=== PATIENT | male | born 1950 | race Caucasian/White ===

== ENCOUNTER 2020-12-12 10:38 | Outpatient (REF) | payer OTHER, SELFPAY ==
[2020-12-12 10:43] LABS: MANUAL DIFF FLAG NO
[2020-12-12 10:54] LABS: Basophils Percent Auto 0.4 % (0-2); Eosinophils Absolute Auto 0.2 X10*3/uL (0.0-0.4); Eosinophils Percent Auto 3.3 % (0-4); Hemoglobin 14.9 g/dl (14.0-18.0); Imm Gran Abs Auto 0.01 X10*3/uL (0.00-0.03); Imm Gran Pct Auto 0.1 % (0.0-0.4); Lymphocytes Absolute Auto 2.2 X10*3/uL (1.2-4.9); Lymphocytes Percent Auto 32.9 % (20-40); Mean Corpuscular HGB Conc 32.4 g/dl (31.0-36.0); Mean Corpuscular Hemoglobin 29.4 pg (27.0-33.0); Mean Corpuscular Volume 90.7 fL (80-98); Mean Platelet Volume 11.2 fL (9.4-12.4); Monocytes Absolute Auto 1.1 X10*3/uL (0.1-1.2); Monocytes Percent Auto 16.8 % (2-11); Neutrophils Absolute Auto 3.1 X10*3/uL (2.0-8.3); Neutrophils Percent Auto 46.5 % (45-73); Platelet Count 203 X10*3/uL (160-400); Red Blood Count 5.07 X10*6/uL (4.60-5.80); Red Cell Distribution Width 13.3 % (11.0-16.0); White Blood Count 6.7 X10*3/uL (4.8-10.8)
[2020-12-12 10:58] LABS: Glucose Urine UA >=1000 MG/DL (NEG); Leukocyte Esterase Urine NEG (NEG); Nitrite Urine NEG (NEG); PH 5.5 (5.0-8.0); Specific Gravity - Urine >= 1.030 (1.005-1.025); Urine Blood NEG (NEG); Urine Ketones NEG (NEG); Urine Protein NEG (NEG-TRACE)
[2020-12-12 10:59] LABS: Appearance Urine CLEAR; Color Urine YELLOW
[2020-12-12 11:21] LABS: Mucus Urine TRACE /LPF; RBC Urine 0 /HPF (0); Squamous Epithelial Cell Urine TRACE /LPF; Uric Acid Crystals Urine TRACE /LPF; WBC Urine 0-2 /HPF (0-4)
[2020-12-12 11:24] LABS: Creatinine Urine 163.85 mg/dL; Microalbum/Creatinine Ratio Ur 53.7 ug/mg cr
[2020-12-12 11:29] LABS: Alanine Aminotransferase 18 U/L (0-40); Alkaline Phosphatase 120 U/L (39-117); Anion Gap 13 (12-20); Aspartate Amino Transferase 17 U/L (5-37); Bilirubin Total 0.7 mg/dL (0.0-1.0); Blood Urea Nitrogen 16 mg/dL (9-16); Calcium 8.9 mg/dL (8.4-10.2); Carbon Dioxide 26 mmol/L (22-29); Chloride 106 mmol/L (96-108); Cholesterol 218 mg/dL; Estimated Glomerular Filt Rate > 60; Glucose Fasting 234 mg/dL (60-99); HDL Cholesterol 34 mg/dL; Potassium 4.3 mmol/L (3.3-5.1); Sodium 141 mmol/L (135-145); Total Protein 7.2 g/dL (6.5-8.0); Triglycerides 540 mg/dL
[2020-12-12 11:34] LABS: Estimated Average Glucose 275 mg/dL; Hemoglobin A1c % 11.2 %
[2020-12-12 11:50] LABS: PSA,Total (Free>4and<10) 1.31 ng/mL (0.00-4.00)
[2020-12-12 14:02] LABS: Reflex LDLD? Yes
[2020-12-13 05:31] LABS: LDL Cholesterol Direct 86 mg/dL (<100)
== END 2020-12-12 10:39 | disposition home or self-care (01) ==
LOC: HO.LNP 10:38
PROVIDERS: Visit Provider Internal Medicine
DX: Z00.00 Encounter for general adult medical examination without abnormal findings (principal); Z12.5 Encounter for screening for malignant neoplasm of prostate; E78.2 Mixed hyperlipidemia; E11.9 Type 2 diabetes mellitus without complications; R97.20 Elevated prostate specific antigen [PSA]
CPT/HCPCS: 80053; 80061; 81001; 82043; 83036; 83721; 84153; 85025

== ENCOUNTER 2021-09-22 10:28 | Outpatient (REF) | payer OTHER, SELFPAY ==
[2021-09-22 10:56] LABS: Estimated Average Glucose 226 mg/dL; Hemoglobin A1c % 9.5 %
[2021-09-22 11:02] LABS: Alanine Aminotransferase 15 U/L (0-40); Albumin Level 4.1 g/dL (3.5-5.0); Alkaline Phosphatase 112 U/L (39-117); Aspartate Amino Transferase 15 U/L (5-37); Bilirubin Direct 0.2 mg/dL (0.0-0.5); Bilirubin Total 0.8 mg/dL (0.0-1.0); Cholesterol 223 mg/dL; Glucose Fasting 163 mg/dL (60-99); HDL Cholesterol 39 mg/dL; LDL Cholesterol Calculated 107 mg/dl; Total Protein 7.4 g/dL (6.5-8.0); Triglycerides 389 mg/dL
[2021-09-22 12:54] LABS: Reflex LDLD? No
== END 2021-09-22 10:29 | disposition home or self-care (01) ==
LOC: HO.LNP 10:28
PROVIDERS: PCP Internal Medicine; Visit Provider Internal Medicine
DX: E11.9 Type 2 diabetes mellitus without complications (principal); E78.2 Mixed hyperlipidemia
CPT/HCPCS: 80061; 80076; 82947; 83036

== ENCOUNTER 2021-12-16 10:43 | Outpatient (REF) | payer OTHER, SELFPAY ==
[2021-12-16 10:59] LABS: MANUAL DIFF FLAG NO
[2021-12-16 11:22] LABS: Basophils Absolute Auto 0.1 X10*3/uL (0.0-0.2); Basophils Percent Auto 0.6 % (0-2); Eosinophils Absolute Auto 0.2 X10*3/uL (0.0-0.4); Eosinophils Percent Auto 2.5 % (0-4); Hematocrit 46.3 % (42.0-52.0); Hemoglobin 15.5 g/dl (14.0-18.0); Imm Gran Abs Auto 0.01 X10*3/uL (0.00-0.03); Imm Gran Pct Auto 0.1 % (0.0-0.4); Lymphocytes Absolute Auto 2.4 X10*3/uL (1.2-4.9); Lymphocytes Percent Auto 30.4 % (20-40); Mean Corpuscular HGB Conc 33.5 g/dl (31.0-36.0); Mean Corpuscular Hemoglobin 30.2 pg (27.0-33.0); Mean Corpuscular Volume 90.1 fL (80.0-98.0); Mean Platelet Volume 11.2 fL (9.4-12.4); Monocytes Absolute Auto 0.9 X10*3/uL (0.1-1.2); Monocytes Percent Auto 11.6 % (2-11); Neutrophils Absolute Auto 4.3 x10*3/uL (2.0-8.3); Neutrophils Percent Auto 54.8 % (45-73); Platelet Count 210 X10*3/uL (160-400); Red Blood Count 5.14 X10*6/uL (4.60-5.80); Red Cell Distribution Width 13.2 % (11.0-16.0); White Blood Count 7.9 X10*3/uL (4.8-10.8)
[2021-12-16 11:37] LABS: Estimated Average Glucose 289 mg/dL; Hemoglobin A1c % 11.7 %
[2021-12-16 11:48] LABS: Alanine Aminotransferase 21 U/L (0-40); Albumin Level 3.9 g/dL (3.5-5.0); Alkaline Phosphatase 127 U/L (39-117); Anion Gap 12 (12-20); Aspartate Amino Transferase 17 U/L (5-37); Bilirubin Total 0.8 mg/dL (0.0-1.0); Blood Urea Nitrogen 17 mg/dL (9-16); Calcium 9.6 mg/dL (8.4-10.2); Carbon Dioxide 29 mmol/L (22-29); Chloride 103 mmol/L (96-108); Cholesterol 302 mg/dL; Estimated Glomerular Filt Rate > 60; Glucose Fasting 219 mg/dL (60-99); HDL Cholesterol 35 mg/dL; Potassium 4.4 mmol/L (3.3-5.1); Sodium 140 mmol/L (135-145); Total Protein 7.6 g/dL (6.5-8.0); Triglycerides 992 mg/dL
[2021-12-16 12:11] LABS: PSA,Total (Free>4and<10) 1.72 ng/mL (0.00-4.00)
[2021-12-16 12:36] LABS: Creatinine Urine 64.07 mg/dL; Microalbum/Creatinine Ratio Ur 76.4 ug/mg cr
[2021-12-16 12:37] LABS: Appearance Urine CLEAR; Color Urine YELLOW; Glucose Urine UA >=1000 MG/DL (NEG); Leukocyte Esterase Urine NEG (NEG); Nitrite Urine NEG (NEG); PH 5.5 (5.0-8.0); Urine Blood TRACE (NEG); Urine Ketones NEG (NEG); Urine Protein NEG (NEG-TRACE)
[2021-12-16 13:10] LABS: RBC Urine 0-2 /HPF (0); Squamous Epithelial Cell Urine TRACE /LPF
[2021-12-16 13:11] LABS: Bacteria Urine 1+ /LPF
== END 2021-12-16 10:44 | disposition home or self-care (01) ==
LOC: HO.LNP 10:43
PROVIDERS: Visit Provider Internal Medicine
DX: Z00.00 Encounter for general adult medical examination without abnormal findings (principal); Z12.5 Encounter for screening for malignant neoplasm of prostate; E78.2 Mixed hyperlipidemia; E78.6 Lipoprotein deficiency; E11.9 Type 2 diabetes mellitus without complications; E78.00 Pure hypercholesterolemia, unspecified; I10 Essential (primary) hypertension; R97.20 Elevated prostate specific antigen [PSA]
CPT/HCPCS: 80053; 80061; 81001; 81003; 82043; 83036; 84153; 85025

== ENCOUNTER 2022-01-19 16:17 | Outpatient (REF) | payer OTHER, SELFPAY ==
[2022-01-19 17:39] LABS: Uric Acid 5.6 mg/dL (3.4-7.0)
== END 2022-01-19 16:18 | disposition home or self-care (01) ==
LOC: HO.LNP 16:17
PROVIDERS: Visit Provider Internal Medicine
DX: M10.9 Gout, unspecified (principal)
CPT/HCPCS: 84550

== ENCOUNTER 2022-03-30 11:40 | Outpatient (REF) | payer OTHER, SELFPAY ==
[2022-03-30 12:16] LABS: Estimated Average Glucose 200 mg/dL; Hemoglobin A1c % 8.6 %
[2022-03-30 12:31] LABS: Cholesterol 174 mg/dL; Glucose Fasting 134 mg/dL (60-99); HDL Cholesterol 39 mg/dL; LDL Cholesterol Calculated 67 mg/dl; Triglycerides 340 mg/dL
[2022-03-30 13:23] LABS: Reflex LDLD? No
== END 2022-03-30 11:41 | disposition home or self-care (01) ==
LOC: HO.LNP 11:40
PROVIDERS: Visit Provider Internal Medicine
DX: E11.9 Type 2 diabetes mellitus without complications (principal); E78.2 Mixed hyperlipidemia
CPT/HCPCS: 80061; 82947; 83036

== ENCOUNTER 2022-12-28 10:50 | Outpatient (REF) | payer OTHER, SELFPAY ==
[2022-12-28 10:55] LABS: MANUAL DIFF FLAG NO
[2022-12-28 11:05] LABS: Basophils Percent Auto 0.6 % (0-2); Eosinophils Absolute Auto 0.2 X10*3/uL (0.0-0.4); Eosinophils Percent Auto 2.9 % (0-4); Hematocrit 44.7 % (42.0-52.0); Hemoglobin 14.2 g/dl (14.0-18.0); Imm Gran Abs Auto 0.01 X10*3/uL (0.00-0.03); Imm Gran Pct Auto 0.2 % (0.0-0.4); Lymphocytes Absolute Auto 1.7 X10*3/uL (1.2-4.9); Lymphocytes Percent Auto 26.2 % (20-40); Mean Corpuscular HGB Conc 31.8 g/dl (31.0-36.0); Mean Corpuscular Hemoglobin 28.3 pg (27.0-33.0); Mean Platelet Volume 10.8 fL (9.4-12.4); Monocytes Absolute Auto 0.8 X10*3/uL (0.1-1.2); Monocytes Percent Auto 12.5 % (2-11); Neutrophils Absolute Auto 3.8 x10*3/uL (2.0-8.3); Neutrophils Percent Auto 57.6 % (45-73); Platelet Count 223 X10*3/uL (160-400); Red Blood Count 5.02 X10*6/uL (4.60-5.80); Red Cell Distribution Width 14.6 % (11.0-16.0); White Blood Count 6.7 X10*3/uL (4.8-10.8)
[2022-12-28 11:07] LABS: Appearance Urine Clear; Color Urine Yellow; Glucose Urine UA >=1000 mg/dL (Negative); Leukocyte Esterase Urine Trace (Negative); Nitrite Urine Negative (Negative); Specific Gravity - Urine >= 1.030 (1.005-1.025); UMIC TRIGGER UACC YES; Urine Blood Negative (Negative); Urine Ketones Negative (Negative); Urine Protein Negative (Neg-Trace)
[2022-12-28 11:19] LABS: Alanine Aminotransferase 20 U/L (0-40); Albumin Level 3.8 g/dL (3.5-5.0); Alkaline Phosphatase 117 U/L (39-117); Anion Gap 12 (12-20); Aspartate Amino Transferase 29 U/L (5-37); Bilirubin Total 0.4 mg/dL (0.0-1.0); Blood Urea Nitrogen 19 mg/dL (9-16); Calcium 9.2 mg/dL (8.4-10.2); Carbon Dioxide 28 mmol/L (22-29); Chloride 106 mmol/L (96-108); Cholesterol 164 mg/dL; Estimated Glomerular Filt Rate > 60; Glucose Fasting 90 mg/dL (60-99); HDL Cholesterol 33 mg/dL; LDL Cholesterol Calculated 72 mg/dl; Potassium 4.4 mmol/L (3.3-5.1); Sodium 142 mmol/L (135-145); Total Protein 6.7 g/dL (6.5-8.0); Triglycerides 295 mg/dL
[2022-12-28 11:26] LABS: Bacteria Urine None Seen (None Seen); Hyaline Casts Urine 0-2 /LPF (0-2); RBC Urine 0-2 /HPF (0-2); Squamous Epithelial Cell Urine 0-2 /HPF (0-2); UACC Culture Trigger YES
[2022-12-28 11:27] LABS: Estimated Average Glucose 120 mg/dL; Hemoglobin A1c % 5.8 %
[2022-12-28 11:35] LABS: PSA,Total (Free>4and<10) 1.65 ng/mL (0.00-4.00)
[2022-12-28 11:38] LABS: Creatinine Urine 52.62 mg/dL; Microalbum/Creatinine Ratio Ur 32.3 ug/mg cr
== END 2022-12-28 10:51 | disposition home or self-care (01) ==
LOC: HO.LNP 10:50
PROVIDERS: Visit Provider Internal Medicine
DX: Z00.00 Encounter for general adult medical examination without abnormal findings (principal); E78.2 Mixed hyperlipidemia; E11.9 Type 2 diabetes mellitus without complications; R97.20 Elevated prostate specific antigen [PSA]; I10 Essential (primary) hypertension; R82.90 Unspecified abnormal findings in urine; Z12.5 Encounter for screening for malignant neoplasm of prostate
CPT/HCPCS: 80053; 80061; 81001; 82043; 83036; 84153; 85025; 87086; 87088; 87186

== ENCOUNTER 2023-06-24 11:45 | Outpatient (REF) | payer OTHER, SELFPAY ==
[2023-06-24 12:17] LABS: Estimated Average Glucose 140 mg/dL; Hemoglobin A1c % 6.5 % (<6.0)
[2023-06-24 12:21] LABS: Cholesterol 141 mg/dL (<200); HDL Cholesterol 41 mg/dL (>40); LDL Cholesterol Calculated 79 mg/dL (<100); Triglycerides 105 mg/dL (<150)
[2023-06-24 12:25] LABS: Alanine Aminotransferase 19 U/L (0-40); Albumin Level 4.1 g/dL (3.5-5.0); Alkaline Phosphatase 102 U/L (39-117); Aspartate Amino Transferase 19 U/L (5-37); Bilirubin Direct 0.3 mg/dL (0.0-0.5); Bilirubin Total 0.6 mg/dL (0.0-1.0); Glucose Fasting 100 mg/dL (60-99); Total Protein 7.5 g/dL (6.5-8.0)
[2023-06-24 13:09] LABS: Reflex LDLD? No
== END 2023-06-24 11:46 | disposition home or self-care (01) ==
LOC: HO.LNP 11:45
PROVIDERS: Visit Provider Internal Medicine
DX: E11.9 Type 2 diabetes mellitus without complications (principal); E78.00 Pure hypercholesterolemia, unspecified
CPT/HCPCS: 80061; 80076; 82947; 83036

== ENCOUNTER 2023-09-13 15:05 | Outpatient (REF) | payer OTHER, SELFPAY ==
--- NOTE | ~2023-09-13 | US_ITS ---
EXAMINATION: US SOFT TISSUE NECK CLINICAL INFORMATION: Enlarged parotid gland. COMPARISON: None available. TECHNIQUE: Linear transducer hein-scale and color Doppler examination with attention to the region of the right parotid gland with the left side scan for comparison. FINDINGS: Right: 1.2 x 0.6 x 0.9 cm avascular angulated hypodensity identified within the right parotid gland. Unremarkable appearing small intraparotid lymph nodes. Left: 2 complex cystic regions identified in the left parotid gland, larger measures 0.6 x 0.4 x 0.5 cm. US/US soft tiss head and/or neck IMPRESSION: 1.2 cm indeterminate right parotid hypodensity. Complex cystic structures left parotid gland. Consider IV contrast-enhanced CT for more definitive evaluation.
== END 2023-09-13 15:06 | disposition home or self-care (01) ==
LOC: HO.US 15:05
PROVIDERS: PCP Internal Medicine; Visit Provider Internal Medicine
DX: K11.1 Hypertrophy of salivary gland (principal)
CPT/HCPCS: 76536

== ENCOUNTER 2023-10-22 11:31 | Outpatient (REF) | payer OTHER, SELFPAY ==
[2023-10-22 12:47] LABS: Blood Urea Nitrogen 18 mg/dL (9-16); Estimated Glomerular Filt Rate > 60
== END 2023-10-22 11:32 | disposition home or self-care (01) ==
LOC: HO.LNP 11:31
PROVIDERS: Visit Provider Internal Medicine
DX: I10 Essential (primary) hypertension (principal)
CPT/HCPCS: 82565; 84520

== ENCOUNTER 2023-10-28 07:24 | Outpatient (REF) | payer OTHER, SELFPAY ==
--- NOTE | ~2023-10-28 | XR_ITS ---
EXAMINATION: XR CHEST CLINICAL INFORMATION: Left-sided chest wall pain. COMPARISON: August 28, 2015. TECHNIQUE: 2 views of the chest were obtained. FINDINGS: Status post median sternotomy with mediastinal clips. The most superior sternotomy wire is broken. Moderate multilevel degenerative changes in the thoracic spine. No pleural effusion. Mild bibasilar streaky opacities may represent atelectasis, although an inflammatory/infectious process could also be considered in the appropriate clinical setting. XR/XR chest 2V IMPRESSION: Mild bibasilar streaky opacities may represent atelectasis, although an inflammatory/infectious process could also be considered in the appropriate clinical setting.
--- NOTE | ~2023-10-28 | CT_ITS ---
EXAMINATION: CT SOFT TISSUE NECK WITH CONTRAST CLINICAL INFORMATION: Evaluate parotid gland nodule. COMPARISON: None available. TECHNIQUE: Following intravenous administration of 65 mL of Omnipaque 350 contrast, helical imaging was performed in the axial plane with generation of coronal and sagittal reformatted images. This CT examination was performed using dose optimization techniques as appropriate, variously including the following: *Automated exposure control *Adjustment of mA and/or kV according to patient size (this includes techniques or standardized protocols for targeted exams where dose is matched to indication/reason for exam; i.e. extremities or head) *Use of iterative reconstruction technique DLP: 396 mGy-cm FINDINGS: No enhancing lesion is seen within the parotid glands with some limitations in evaluation due to dental amalgam artifacts. There are multiple small calcifications within both parotid glands. No inflammatory changes are visible within the parotid spaces. No pathologically enlarged cervical lymph nodes are visible. There are atherosclerotic wall calcification at the origins of the internal carotid arteries without significant stenosis. No abnormal enhancement is seen within the oral cavity, pharyngeal mucosal space, or larynx. There is mild lobulated soft tissue along the tongue base, which is suspected to represent lingular tonsillar tissue. The submandibular glands are normal in appearance. The thyroid gland is homogeneous. The airway is normally maintained. There are surgical clips in the mediastinum with poststernotomy changes. The visualized portions of the lungs are clear. There is a chronic depressed fracture of the left orbital floor. The orbits are otherwise normal in appearance. No periapical lucencies are seen in the dentition. No acute osseous abnormality is seen. There is a mild rightward curvature of the cervical spine and leftward curvature of the thoracic spine. Severe loss of disc height with disc-osteophyte complexes noted at the C5-C6 and C6-C7 levels. Multilevel hypertrophic facet arthropathy noted in the cervical spine with foraminal encroachment. The paranasal sinuses are fairly well aerated. Moderate sigmoidal-shaped nasal septal deviation noted. The middle ear cavities and mastoid air cells are well aerated. The temporomandibular joints are normal. There is a focal [id number] stenosis in the intradural right vertebral artery with significant wall calcifications. The imaged portions of the brain demonstrate no acute abnormality. CT/CT soft tissue neck w IV con IMPRESSION: No discrete parotid glandular lesion. Multiple calcifications within both parotid glands suggest the sequelae of an underlying chronic inflammatory process; clinically correlate. No cervical adenopathy or acute process.
[2023-10-28] MEDS: iohexoL 350 MG/ML 100 ML INFUS..BTL 65 ML IV (08:19)
== END 2023-10-28 07:25 | disposition home or self-care (01) ==
LOC: HO.CT 07:24
PROVIDERS: Visit Provider Internal Medicine
DX: R07.89 Other chest pain (principal); K11.8 Other diseases of salivary glands
CPT/HCPCS: 70491; 71046; Q9967

== ENCOUNTER 2023-12-31 10:56 | Outpatient (REF) | payer OTHER, SELFPAY ==
[2023-12-31 11:10] LABS: MANUAL DIFF FLAG NO
[2023-12-31 11:15] LABS: Basophils Percent Auto 0.4 % (0-2); Eosinophils Absolute Auto 0.2 X10*3/uL (0.0-0.4); Eosinophils Percent Auto 2.2 % (0-4); Hematocrit 47.1 % (42.0-52.0); Hemoglobin 15.8 g/dl (14.0-18.0); Imm Gran Abs Auto 0.03 X10*3/uL (0.00-0.03); Imm Gran Pct Auto 0.4 % (0.0-0.4); Lymphocytes Absolute Auto 1.8 X10*3/uL (1.2-4.9); Lymphocytes Percent Auto 23.4 % (20-40); Mean Corpuscular HGB Conc 33.5 g/dl (31.0-36.0); Mean Corpuscular Hemoglobin 31.1 pg (27.0-33.0); Mean Corpuscular Volume 92.7 fL (80.0-98.0); Mean Platelet Volume 10.9 fL (9.4-12.4); Monocytes Absolute Auto 0.9 X10*3/uL (0.1-1.2); Monocytes Percent Auto 11.8 % (2-11); Neutrophils Absolute Auto 4.8 x10*3/uL (2.0-8.3); Neutrophils Percent Auto 61.8 % (45-73); Platelet Count 216 X10*3/uL (160-400); Red Blood Count 5.08 X10*6/uL (4.60-5.80); Red Cell Distribution Width 12.7 % (11.0-16.0); White Blood Count 7.8 X10*3/uL (4.8-10.8)
[2023-12-31 11:27] LABS: Estimated Average Glucose 212 mg/dL
[2023-12-31 11:29] LABS: Appearance Urine Clear; Color Urine Yellow; Glucose Urine UA >=1000 mg/dL (Negative); Leukocyte Esterase Urine Trace (Negative); Nitrite Urine Negative (Negative); PH 5.5 (5.0-9.0); Specific Gravity - Urine >= 1.030 (1.005-1.025); UMIC TRIGGER UACC YES; Urine Blood Negative (Negative); Urine Ketones Negative (Negative); Urine Protein Trace mg/dL (Neg-Trace)
[2023-12-31 11:40] LABS: Bacteria Urine None Seen (None Seen); Hyaline Casts Urine 0-2 /LPF (0-2); Squamous Epithelial Cell Urine 0-2 /HPF (0-2); UACC Culture Trigger YES
[2023-12-31 11:44] LABS: Alanine Aminotransferase 21 U/L (0-40); Albumin Level 3.9 g/dL (3.5-5.0); Alkaline Phosphatase 92 U/L (39-117); Anion Gap 12 (12-20); Aspartate Amino Transferase 19 U/L (5-37); Bilirubin Total 0.7 mg/dL (0.0-1.0); Blood Urea Nitrogen 16 mg/dL (9-16); Calcium 8.8 mg/dL (8.4-10.2); Carbon Dioxide 26 mmol/L (22-29); Chloride 107 mmol/L (96-108); Cholesterol 141 mg/dL (<200); Estimated Glomerular Filt Rate > 60; Glucose Fasting 131 mg/dL (60-99); HDL Cholesterol 40 mg/dL (>40); LDL Cholesterol Calculated 55 mg/dL (<100); Potassium 3.9 mmol/L (3.3-5.1); RBC Urine 0-2 /HPF (0-2); Sodium 141 mmol/L (135-145); Total Protein 7.2 g/dL (6.5-8.0); Triglycerides 230 mg/dL (<150)
[2023-12-31 11:49] LABS: Creatinine Urine 58.76 mg/dL; Microalbum/Creatinine Ratio Ur 124.2 ug/mg cr (<30)
[2023-12-31 11:56] LABS: PSA,Total (Free>4and<10) 1.99 ng/mL (0.00-4.00)
== END 2023-12-31 10:57 | disposition home or self-care (01) ==
LOC: HO.LNP 10:56
PROVIDERS: Visit Provider Internal Medicine
DX: Z00.00 Encounter for general adult medical examination without abnormal findings (principal); E78.00 Pure hypercholesterolemia, unspecified; I10 Essential (primary) hypertension; E78.2 Mixed hyperlipidemia; E11.40 Type 2 diabetes mellitus with diabetic neuropathy, unspecified; R82.90 Unspecified abnormal findings in urine; Z12.5 Encounter for screening for malignant neoplasm of prostate
CPT/HCPCS: 80053; 80061; 81001; 82043; 82570; 83036; 84153; 85025; 87086

== ENCOUNTER 2024-04-13 13:46 | Outpatient (AMB) | payer OTHER, SELFPAY ==
--- NOTE | 2024-04-13 14:11 | A.OFFVIS_ITS ---
Intake Visit Reasons: prostate irregularity Intake Note: Patient is present for PROSTATE IRREGULARITY Urology Medication:NONE Antibiotic Allergy:NONE Blood Thinner:NONE Combination Technician Required: No Allergies METFORMIN Allergy (Mild, Uncoded 04/13/24 14:27) Diarrhea HPI Comments Details: 04/13/2024--Rodolfo is a 73-year-old male who is here as an new patient evaluation of his prostate. He denies problems with urination, he does state occasionally he will get some urinary dribbling. AUA score 5. Reviewed recent PSA-12/31/23-1.99 ng/mL. Family history father prostate cancer, he states age 78 and his father was treated with hormone therapy. Prostate Exam: slightly irregular, no suspicious hard nodules palpated. Plan will ultrasound kidneys and bladder including prostate. [facility] Medical History Pure hypercholesterolemia, unspecified Oral mucosal lesion Skin lesion Prostate irregularity Type 2 diabetes mellitus without complication Annual physical exam Social History Alcohol intake: current Patient Tobacco Use Status: Never used Tobacco Review of Systems Const All systems reviewed & are unremarkable except as noted in HPI and below Reports no additional complaints Eyes Reports no additional complaints ENT Reports no additional complaints Card Reports no additional complaints Resp Reports no additional complaints GI Reports no additional complaints Reports as per HPI Musc Reports no additional complaints Skin/Breast Reports system reviewed and no additional complaints, except as documented Neuro Reports no additional complaints Psych Reports no additional complaints Endo Reports no additional complaints Jose Alfredo/Lymph Reports no additional complaints Aller/Immun Reports no additional complaints Physical Exam Const General: healthy appearing, no acute distress and well developed Orientation/consciousness: patient oriented x3 HEENT Head: Yes normocephalic and Yes atraumatic Eyes Conjunctivae: conjunctivae normal Neck Neck: Yes normal visual inspection Chest Chest palpation & inspection: normal inspection of the chest Resp Effort & Inspection: normal respiratory effort Cardio Jugular venous distension: no JVD GI Inspection: Yes normal to inspection Palpation (GI): Soft to palpation Other: Prostate Exam: slightly irregular, no suspicious hard nodules palpated Neuro General: patient oriented x3 Extrem General: No pedal edema Psych Appearance: grossly normal Affect: normal affect Results AMB Urinalysis, Automated UA Leukoctes 0 Prasanna/uL Last Edit by VAMSI Morgan on 04/13/24 14:29 UA Nitrite Negative Last Edit by VAMSI Morgan on 04/13/24 14:29 UA Urobilinogen 0.2 mg/dL Last Edit by VAMSI Morgan on 04/13/24 14:2 9 UA Protein 0 mg/dL Last Edit by VAMSI Morgan on 04/13/24 14:29 UA pH 5.5 Last Edit by VAMSI Morgan on 04/13/24 14:29 UA Blood 10 Yash/uL Last Edit by VAMSI Morgan on 04/13/24 14:29 UA Specific [place] 1.020 Last Edit by VAMSI Morgan on 04/13/24 14: 29 UA Ketone Negative Last Edit by VAMSI Morgan on 04/13/24 14:29 UA Bilirubin 0 mg/dL Last Edit by VAMSI Morgan on 04/13/24 14:29 UA Glucose 1000 mg/dL Last Edit by VAMSI Morgan on 04/13/24 14:29 Quality Reporting (2019) Benign Prostatic Hyperplasia ([facility] 771) AUA symptom score: 5 Quality of life due to urinary symptoms: If you were to spend the rest of your life with your urinary condition the way it is now, how would you feel about that?: Pleased Results Reviewed Results Reviewed: Laboratory Last Values Urine pH (Auto) 5.5 04/13/24 14: Specific [place] (Auto) 1.020 04/13/24 14:29 Urine Protein (Auto) 0 mg/dL 04/13/24 14:29 Glucose (UA)(Auto) 1000 mg/dL 04/13/24 14:29 Urine Ketones (Auto) Negative 04/13/24 14:29 Urine Blood (Auto) 10 Yash/uL 04/13/24 14:29 Urine Nitrite (Auto) Negative 04/13/24 14:29 Urine Bilirubin (Auto) 0 mg/dL 04/13/24 14:29 Urine Urobilinogen (Auto) 0.2 mg/dL 04/13/24 14:29 Leukocyte Esterase (Auto) 0 Prasanna/uL 04/13/24 14:29 Assessment & Plan Assessment & Plan (1) BPH loc w urin obs/LUTS: Code(s): N40.1 - Benign prostatic hyperplasia with lower urinary tract symptoms Category: Medical (2) Family history of prostate cancer in father: Code(s): Z80.42 - Family history of malignant neoplasm of prostate Category: Medical Plan Plan will ultrasound kidneys and bladder including prostate. Orders: Orders US retroperitoneal comp Today N40.1 - Benign prostatic hyperplasia with lower urinary tract symptoms AMB Urinalysis Automated Today Z13.9 - Encounter for screening, unspecified Patient Instructions: The patient had an opportunity to ask questions regarding treatment plan. The patient expressed understanding and agreement with the above treatment plan. The patient is aware they should contact our office by phone for worsening of their current condition or the appearance of new symptoms. Compliance is encouraged with any medications and followup testing that is ordered. It is a privilege to be allowed the opportunity to participate in the urologic care of your patient. If you have any questions or concerns regarding treatment for the above conditions please do not hesitate to contact me. The office telephone contact is [phone]. This note is constructed in part using voice recognition software. While every effort has been made to ensure accuracy scaleman errors may have been included. Yours sincerely, Wendy Burnett MD Coding Level of Care Code New Pt Level 4 (20734) Diagnoses BPH loc w urin obs/LUTS N40.1 Family history of prostate cancer in father Z80.42 AUA Symptom Score AUA Incomplete emptying - It does not feel like I empty my bladder all the way.: 0 - Not at all Frequency - I have to go again less than two hours after I finish urinating.: 1 - Less than 1 time in 5 Intermittency - I stop and start again several times when I urinate.: 0 - Not at all Urgency - It is hard to wait when I have to urinate.: 1 - Less than 1 time in 5 Weak stream - I have a weak urinary stream.: 1 - Less than 1 time in 5 Straining - I have to push or strain to begin urination.: 0 - Not at all Nocturia - I get up to urinate after I go to bed until the time I get up in the morning.: 2 times AUA Symptom Score: 5 Quality of life due to urinary symptoms: If you were to spend the rest of your life with your urinary condition the way it is now, how would you feel about that?: Pleased Source: Alberto KIM, Melissa LADD Jr, O'Allyssa MP, et al, and the Measurement Committee of the [place] [employer]. The [place] [employer] symptom index for benign prostatic hyperplasia. J Urol. 1992; 148: 4444-6746. Copyright 1992 [place] [employer]
== END 2024-04-13 15:05 | disposition home or self-care (01) ==
PROVIDERS: PCP Internal Medicine; Visit Provider Urology
DX: N40.1 Benign prostatic hyperplasia with lower urinary tract symptoms (principal); Z80.42 Family history of malignant neoplasm of prostate; Z13.9 Encounter for screening, unspecified
CPT/HCPCS: 99204

== ENCOUNTER → 2024-04-13 13:46 | Outpatient (BNVA) | payer OTHER, SELFPAY | PROVIDERS: PCP Internal Medicine; Visit Provider Urology | DX: N40.1 Benign prostatic hyperplasia with lower urinary tract symptoms (principal); N13.8 Other obstructive and reflux uropathy; Z80.42 Family history of malignant neoplasm of prostate | CPT/HCPCS: 81003 ==

== ENCOUNTER 2024-05-30 09:16 | Outpatient (REF) | payer OTHER, SELFPAY ==
--- NOTE | ~2024-05-30 | US_ITS ---
EXAMINATION: US RETROPERITONEAL COMPLETE (RENAL) CLINICAL INFORMATION: Benign prostatic hyperplasia with lower urinary tract symptoms. COMPARISON: None available. TECHNIQUE: Real-time imaging of the kidneys and bladder. FINDINGS: RIGHT KIDNEY: 12.7 x 6.2 x 5.7 cm (SAG x AP x TRV). The kidney is normal in size, contour, and echogenicity. Renal cortical thickness is normal. No renal calculi or hydronephrosis. A benign mid renal 1.4 cm Bosniak class I renal cyst is noted which requires no additional imaging or follow up. No solid renal masses are seen. LEFT KIDNEY: 11.5 x 6.7 x 4.9 cm (SAG x AP x TRV). The kidney is normal in size, contour, and echogenicity. Renal cortical thickness is normal. No calculi or focal parenchymal lesions. No hydronephrosis. BLADDER: Well distended and normal. Bilateral ureteral jets are demonstrated. Prevoid bladder volume is 152.0 mL. Postvoid bladder volume is 45.3 mL. ADDITIONAL FINDINGS: The prostate is enlarged at 49 cc US/US retroperitoneal comp IMPRESSION: Prostatomegaly with 49 cc prostate and 45.3 cc postvoid residual. Electronically signed by: Dominic Marcelino MD 07/29/2024 10:19 AM EST
== END 2024-05-30 09:17 | disposition home or self-care (01) ==
LOC: HO.US 09:16
PROVIDERS: PCP Internal Medicine; Visit Provider Urology
DX: N40.1 Benign prostatic hyperplasia with lower urinary tract symptoms (principal)
CPT/HCPCS: 76770

== ENCOUNTER 2024-06-05 08:30 | Outpatient (AMB) | payer OTHER, SELFPAY ==
--- NOTE | 2024-06-05 08:31 | MHC.OFFVIS ---
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
--- NOTE | 2024-06-05 08:31 | MHC.OFFVIS ---
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 Reviewed renal ultrasound which was done on 05/30/2024 small cyst right kidney no suspicious masses or stones. Mild to moderately enlarged prostate estimated volume 48.8 mL. Postvoid residual 45.3 mL. CoMorbidity--the patient is an insulin-dependent diabetic recent A1c 12/2023--9.0. Discussed starting Flomax however the patient wants to wait on any new medications and does not feel the urine flow is significantly bothersome at this time. Follow-up in 6 months PSA prior Review of chart: 04/13/2024--Rodolfo is a 73-year-old male who is here as an new patient evaluation of his prostate. He denies problems with urination, he does state occasionally he will get some urinary dribbling. AUA score 5. Reviewed recent PSA-12/31/23-1.99 ng/mL. Family history father prostate cancer, he states age 78 and his father was treated with hormone therapy. Prostate Exam: slightly irregular, no suspicious hard nodules palpated. Plan will ultrasound kidneys and bladder including prostate. [facility] Medical History Pure hypercholesterolemia, unspecified Oral mucosal lesion Skin lesion Prostate irregularity Type 2 diabetes mellitus without complication Annual physical exam Social History Alcohol intake: current Patient Tobacco Use Status: Never used Tobacco Review of Systems Const All systems reviewed & are unremarkable except as noted in HPI and below Reports no additional complaints Eyes Reports no additional complaints ENT Reports no additional complaints Card Reports no additional complaints Resp Reports no additional complaints GI Reports no additional complaints Reports as per HPI Musc Reports no additional complaints Skin/Breast Reports system reviewed and no additional complaints, except as documented Neuro Reports no additional complaints Psych Reports no additional complaints Endo Reports no additional complaints Jose Alfredo/Lymph Reports no additional complaints Aller/Immun Reports no additional complaints Telehealth Telehealth Telehealth [facility]: [facility] Location of provider rendering services: practice address Location of patient: address on file Patient Identification confirmed using: Name, : Yes Telehealth method: video Patient verbally consented to treatment: Yes Patient verbally consented to billing insurance company: Yes Patient informed of any privacy concerns related to visit: Yes Assessment & Plan Assessment & Plan (1) BPH loc w urin obs/LUTS: Code(s): N40.1 - Benign prostatic hyperplasia with lower urinary tract symptoms Category: Medical (2) Family history of prostate cancer in father: Code(s): Z80.42 - Family history of malignant neoplasm of prostate Category: Medical (3) Diabetes: Code(s): E11.9 - Type 2 diabetes mellitus without complications Category: Medical (4) Screening PSA (prostate specific antigen): Code(s): Z12.5 - Encounter for screening for malignant neoplasm of prostate Category: Medical Plan Follow-up in 6 months PSA prior Orders: Orders PSA,Total (Free>4and<10) 6 Months N40.1 - Benign prostatic hyperplasia with lower urinary tract symptoms, Z12.5 - Encounter for screening for malignant neoplasm of prostate, Z80.42 - Family history of malignant neoplasm of prostate Patient Instructions: The patient had an opportunity to ask questions regarding treatment plan. The patient expressed understanding and agreement with the above treatment plan. The patient is aware they should contact our office by phone for worsening of their current condition or the appearance of new symptoms. Compliance is encouraged with any medications and followup testing that is ordered. It is a privilege to be allowed the opportunity to participate in the urologic care of your patient. If you have any questions or concerns regarding treatment for the above conditions please do not hesitate to contact me. The office telephone contact is [phone]. This note is constructed in part using voice recognition software. While every effort has been made to ensure accuracy painter assistant errors may have been included. Yours sincerely, Wendy Burnett MD Coding Level of Care Code Tele Est Pt Level 4 (77445) Diagnoses BPH loc w urin obs/LUTS N40.1 Family history of prostate cancer in father Z80.42 Diabetes E11.9 Screening PSA (prostate specific antigen) Z12.5
== END 2024-06-05 08:58 | disposition home or self-care (01) ==
LOC: HO.HUSH 08:30
PROVIDERS: PCP Internal Medicine; Visit Provider Urology
DX: N40.1 Benign prostatic hyperplasia with lower urinary tract symptoms (principal); Z80.42 Family history of malignant neoplasm of prostate; E11.9 Type 2 diabetes mellitus without complications; Z12.5 Encounter for screening for malignant neoplasm of prostate
CPT/HCPCS: 99214

== ENCOUNTER → 2024-06-05 08:30 | Outpatient (BNVA) | payer OTHER, SELFPAY | PROVIDERS: PCP Internal Medicine; Visit Provider Urology ==

== ENCOUNTER 2024-07-04 11:34 | Outpatient (REF) | payer OTHER, SELFPAY ==
[2024-07-04 12:42] LABS: Estimated Average Glucose 220 mg/dL; Hemoglobin A1C 313.7705 umol/L; Hemoglobin A1c % 9.3 % (<6.0); Total Hemoglobin (HGBA1C) 4008.2038 umol/L
[2024-07-04 12:48] LABS: Alanine Aminotransferase 20 U/L (0-40); Albumin Level 3.8 g/dL (3.5-5.0); Alkaline Phosphatase 103 U/L (39-117); Aspartate Amino Transferase 25 U/L (5-37); Bilirubin Direct 0.2 mg/dL (0.0-0.5); Bilirubin Total 0.6 mg/dL (0.0-1.0); Cholesterol 151 mg/dL (<200); Glucose Fasting 182 mg/dL (60-99); HDL Cholesterol 35 mg/dL (>40); LDL Cholesterol Calculated 57 mg/dL (<100); Total Protein 6.9 g/dL (6.5-8.0); Triglycerides 298 mg/dL (<150)
== END 2024-07-04 11:35 | disposition home or self-care (01) ==
LOC: HO.LNP 11:34
PROVIDERS: Visit Provider Internal Medicine
DX: E11.9 Type 2 diabetes mellitus without complications (principal); E78.2 Mixed hyperlipidemia
CPT/HCPCS: 80061; 80076; 82947; 83036

== ENCOUNTER 2024-09-13 09:37 | Outpatient (REF) | payer OTHER, SELFPAY ==
--- NOTE | ~2024-09-13 | US_ITS ---
EXAMINATION: US EXTRACRANIAL CAROTID DUPLEX, BILATERAL CLINICAL INFORMATION: Carotid stenosis COMPARISON: January 09, 2020. TECHNIQUE: Real-time ultrasound and Doppler techniques (integrating B-mode 2-D vascular images, Doppler spectral analysis and color-flow Doppler imaging) were utilized to interrogate the extracranial carotid arteries, the vertebral arteries and proximal subclavian arteries bilaterally. The degree of stenosis is determined by criteria similar to NASCET. FINDINGS: Right Side: 1. There is mild calcified atherosclerotic plaque seen in the bifurcation/proximal ICA region. 2. The common carotid artery PSV proximally is 116 cm/s.. 3. The proximal internal carotid artery velocities are 60 cm/s systolic and 17 cm/s diastolic. 4. The proximal external carotid artery PSV is 81 cm/s. 5. The vertebral artery shows antegrade flow. 6. The subclavian artery waveforms are triphasic. Left Side: 1. There is calcified atherosclerotic plaque seen in the bifurcation/proximal ICA region. 2. The common carotid artery PSV proximally is 97 cm/.. 3. The proximal internal carotid artery velocities are 73 cm/s systolic and 16 cm/s diastolic. 4. The proximal external carotid artery PSV is 73 cm/s. 5. The vertebral artery shows antegrade flow. 6. The subclavian artery waveforms are triphasic. US/US carotid duplex BI IMPRESSION: 1. RIGHT: Calcified plaque. No hemodynamically significant stenosis by ultrasound criteria. 2. LEFT: Calcified plaque. No hemodynamically significant stenosis by ultrasound criteria. 3. There is no change in the category severity of disease when compared to the previous study dated . Electronically signed by: Miguel Castro MD 09/13/2024 11:33 AM EST
--- OUTSIDE RECORDS SUMMARY | 2024-09-13 11:14 | XMS_ITS ---
Author Organization Mj Bella MD Address [address] [place] [phone] Care Team Providers Care Pneumatic Tube Fitter Name Role Phone Mj Bella Primary Care Provider Allergies Allergen (clinical drug ingredient) Drug/Non Drug Allergy documented on EMR Reaction Allergy Type Onset Date Status metformin Metformin HCl diarrhea Drug Allergy Act rohan REASON FOR VISIT STUFFY NOSE., Video, c/o runny nose and chest congestion tested negative for Covid 1-2-25 Medications Medication SIG (Take, Route, Frequency, Duration) Notes Start Date End Date Status Metoprolol Succinate ER 100 MG TAKE 1 TABLET BY MOUTH EVERY DAY for 90 Active Lantus SoloStar 100 UNIT/ML 25 units Active Pantoprazole Sodium 40 MG 1 tablet Orall y Once a day for 90 days 03/20/2024 Active Omeprazole 20 MG TAKE 1 CAPSULE BY [facility] EVERY DAY 30 MINUTES BEFORE BREAKFAST for 30 Active Zithromax Z-Carlos Manuel 250 MG 2 tablet on the f irst day, then 1 tablet daily for 4 days Orally Once a day for 5 day(s) 08/18/2024 Active Pen [place] 3/16 31G X 5 MM as directed for 90 days 09/19/2019 Acti ve BD Pen Needle Mini U/F 31G X 5 MM USE 1 PEN TO INJECT MEDICATION DIRECTED for 90 Active Aspirin 81 MG 1 tablet Orally Once a day Active Nystatin 950135 UNIT/GM APPLY TOPICALLY TO THE AFFECTED AREA TWICE DAILY for 30 Active Dexcom G6 Sensor - as directed change every 10 days for 90 days 10/23/2022 Active Betamethasone Dipropionate Aug 0.05 % 1 application Externally Once a day for 14 days 09/11/2022 Active Dexcom G6 Transmitter - as directed huber ge every 90 days 10/23/2022 Active Dexcom G6 Hoist Operator - as directed 11/02/2022 Active FreeStyle Lancets - USE 1 LANCET TO TEST BLOOD SUGAR TWICE A DAY for 50 Active Indomethacin 50 MG 1 capsule with food or milk Orally Three times a day for 10 days 01/19/2022 Not-Taking Clopidogrel Bisulfate 75 MG 1 tablet Orally Once a day for 30 day(s) Active Ibuprofen 800 MG 1 tablet with food o r milk as needed Orally every 8 hrs Not-Taking Farxiga 10 mg 1 tablet Orally Once a day for 30 days 10/29/2023 Not-Taking sAXagliptin HCl 5 MG TAKE 1 TABLET BY MO UTH EVERY DAY Once a day for 90 days Active Zetia 10 MG 1 tablet Orally Once a day Active amLODIPine Besylate 5 MG TAKE 1 TABLET B Y MOUTH EVERY DAY Active Lisinopril 5 MG TAKE 1 TABLET BY [place] TH EVERY DAY Active Jardiance 25 MG 1 tablet Orally Once a day Active Atorvastatin Calcium 40 MG TAKE 1 TABLET BY MOUTH EVERY DAY Active Problems Problem Type SNOMED Code ICD Code Onset Dates Problem Status W/U Status Risk Notes Problem 27963009 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 Vital Signs Height 68 in 08/18/2024 weight is 215 BP not taken a t home no temp Encounters Encounter Location Date Provider Diagnosis Mj Bella MD [address] [place] [address] [place] [phone] 08/18/2024 Mj Bella Purulent bronchitis J41.1 Assessments Encounter Date Diagnosis (ICD Code) Assessment Notes Treatment Notes Treatment Clinical Notes Section Notes 08/18/2024 Purulent bronchitis (ICD-10 - J41.1) patient verbalized understanding of medication and directions for use Plan Of Treatment Medication Medication Name Sig Start Date Stop Date Notes Zithromax Z-Carlos Manuel 250 MG 2 tablet on the f irst day, then 1 tablet daily for 4 days Orally Once a day for 5 day(s) 08/18/2024 Treatment Notes Assessment Notes Purulent bronchitis patient verbalized u nderstanding of medication and directions for use Next Appt Details Provider Name:Mj vasquez, 01/04/2025 07:30:00 AM, [address] [place] [address], [address], [place], [place], [phone], Provider Name:Mj vasquez, 01/11/2025 08:30:00 AM, [address] [place] [address], Suite [facility], [place], [place], [phone], Progress Notes * Rodolfo WRIGHT PDOB:1950 (73 yo M)Acc No.[id number]:08/18/2024 Patient:?Rodolfo Wright Provider:?Mj eBlla MD :1950???Age:73 Y???Sex:Male Shaan e:08/18/2024 Address: [address], [facility] Subjective: * Chief Complaints: * ???STUFFY NOSE. [phone] Videoc/o runny nose and chest congestion tested negative for Covid 1-2-25 * HPI: ???Symptom(s):?Telehealth?Location of provider rendering services:?[address] [place] [address], [facility],?Location of patient:?other (please specify) At work in [place],?Patient identification confirmed using:?Name, , SSN, Insurance information,?Telehealth method:?Telephone only. Patient not visible to care provider.,?Consent:?Patient verbally consented to treatment, Patient verbally consented to billing insurance company, Patient informed of any privacy concerns related to method of visit,?Total time spend talking with patient (minutes)?10.? patient is a 73 yo male audio teleheath visit, with complaint of chest cold and having get rid of cough.runny nose, no fevers. tested negative for covid yesterday. * ROS:?General/Constitutional:?Denies?Chills.?Denies?Fatigue.?Denies?Fever.?Denies?Headache.?ENT:?Patient denies?decreased sense of smell , any loss of taste , sore throat.?Denies?Sore throat.?Respiratory:?Denies?Cough.?Denies?Shortness of breath at rest.?Denies?Shortness of breath with exertion.?Gastrointestinal:?Denies?Diarrhea.?Denies?Nausea.?Musculoskeletal:?Patient denies?muscle aches.?Peripheral Vascular:?Patient denies?red and blue toes.? * Medical History:? * Surgical History:? * Hospitalization/Major Diagno stic Procedure:? * Medications:?TakingClopidogr el Bisulfate 75 MG Tablet 1 tablet Orally Once a dayFreeStyle Lancets - Miscellaneous USE 1 LANCET TO TEST BLOOD SUGAR TWICE A DAY Betamethasone Dipropionate Aug 0.05 % Gel 1 application Externally Once a dayDexcom G6 Sensor - Miscellaneous as directed change every 10 daysDexcom G6 Transmitter - Miscellaneous as directed change every 90 daysDexcom G6 Hoist Operator - Device as directed Aspirin 81 MG Tablet Chewable 1 tablet Orally Once a dayBD Pen Needle Mini U/F 31G X 5 MM Miscellaneous USE 1 PEN TO INJECT MEDICATION DIRECTED Pen [place] 3/16 31G X 5 MM Miscellaneous as directed Nystatin 679539 UNIT/GM Cream APPLY TOPICALLY TO THE AFFECTED AREA TWICE DAILY Omeprazole 20 MG Capsule Delayed Release TAKE 1 CAPSULE BY MOUTH EVERY DAY 30 MINUTES BEFORE BREAKFAST Pantoprazole Sodium 40 MG Tablet Delayed Release 1 tablet Orally Once a dayMetoprolol Succinate ER 100 MG Tablet Extended Release 24 Hour TAKE 1 TABLET BY MOUTH EVERY DAY Lantus SoloStar 100 UNIT/ML Solution Pen-injector 25 units Zetia 10 MG Tablet 1 tablet Orally Once a dayAtorvastatin Calcium 40 MG Tablet TAKE 1 TABLET BY MOUTH EVERY DAY Jardiance 25 MG Tablet 1 tablet Orally Once a dayLisinopril 5 MG Tablet TAKE 1 TABLET BY MOUTH EVERY DAY amLODIPine Besylate 5 MG Tablet TAKE 1 TABLET BY MOUTH EVERY DAY sAXagliptin HCl 5 MG Tablet TAKE 1 TABLET BY MOUTH EVERY DAY Once a dayTaking Clopidogrel Bisulfate 75 MG Tablet 1 tablet Orally Once a dayTaking FreeStyle Lancets - Miscellaneous USE 1 LANCET TO TEST BLOOD SUGAR TWICE A DAY Taking Betamethasone Dipropionate Aug 0.05 % Gel 1 application Externally Once a dayTaking Accruent G6 Sensor - Miscellaneous as directed change every 10 daysTaking Dexcom G6 Transmitter - Miscellaneous as directed change every 90 daysTaking DexaVinci Media G6 Hoist Operator - Device as directed Taking Aspirin 81 MG Tablet Chewable 1 tablet Orally Once a dayTaking BD Pen Needle Mini U/F 31G X 5 MM Miscellaneous USE 1 PEN TO INJECT MEDICATION DIRECTED Taking Pen [place] 3/16 31G X 5 MM Miscellaneous as directed Taking Nystatin 048012 UNIT/GM Cream APPLY TOPICALLY TO THE AFFECTED AREA TWICE DAILY Taking Omeprazole 20 MG Capsule Delayed Release TAKE 1 CAPSULE BY MOUTH EVERY DAY 30 MINUTES BEFORE BREAKFAST Taking Pantoprazole Sodium 40 MG Tablet Delayed Release 1 tablet Orally Once a dayTaking Metoprolol Succinate ER 100 MG Tablet Extended Release 24 Hour TAKE 1 TABLET BY MOUTH EVERY DAY Taking Lantus SoloStar 100 UNIT/ML Solution Pen-injector 25 units Taking Zetia 10 MG Tablet 1 tablet Orally Once a dayTaking Atorvastatin Calcium 40 MG Tablet TAKE 1 TABLET BY MOUTH EVERY DAY Taking Jardiance 25 MG Tablet 1 tablet Orally Once a dayTaking Lisinopril 5 MG Tablet TAKE 1 TABLET BY MOUTH EVERY DAY Taking amLODIPine Besylate 5 MG Tablet TAKE 1 TABLET BY MOUTH EVERY DAY Taking sAXagliptin HCl 5 MG Tablet TAKE 1 TABLET BY MOUTH EVERY DAY Once a dayNot-Taking/PRNFarxiga 10 mg Tablet 1 tablet Orally Once a dayIbuprofen 800 MG Tablet 1 tablet with food or milk as needed Orally every 8 hrsIndomethacin 50 MG Capsule 1 capsule with food or milk Orally Three times a dayNot-Taking/PRN Farxiga 10 mg Tablet 1 tablet Orally Once a dayNot- Taking/PRN Ibuprofen 800 MG Tablet 1 tablet with food or milk as needed Orally every 8 hrsNot-Taking/PRN Indomethacin 50 MG Capsule 1 capsule with food or milk Orally Three times a dayDiscontinuedPaxlovid (300/100) 20 x 150 MG & 10 x 100MG Tablet Therapy Pack 3 tablets Orally Twice a dayMedication List reviewed and reconciled with the patientDiscontinued Paxlovid (300/100) 20 x 150 MG & 10 x 100MG Tablet Therapy Pack 3 tablets Orally Twice a dayMedication List reviewed and reconciled with the patient * Allergies:?Metformin HCl: di arrheayes[Allergies Verified] Objective: * Vitals:?Ht: 68 weight is 215 BP not taken at home no temp. Assessment: * Assessment: 1.?Purulent bronchitis - J41 .1 (Primary)? Plan: * Treatment: * Procedure Codes:? * * Sign off status: Completed true * Provider:?Mj Bella MD Date:?0 08/18/2024 Generated for Lolis carlson/Ileana/eTransmitting on:?09/13/2024 11:14 AM EST History and Physical Notes * HPI (History of Present Illness) Category Sub-Category Detail Notes Category Not es Symptom(s) Telehealth Location of [facility] services:: [address], [address] patient is a 73 yo male audio teleheath visit, with complaint of chest cold and having get rid of cough.runny nose, no fevers. tested negative for covid yesterday Location of patient:: other (please spec john) At work in [employer] Patient identification confi rmed using:: Name, , SSN, Insurance information Telehealth method:: Telephon e only. Patient not visible to care provider. Consent:: Patient verbally c onsented to treatment, Patient verbally consented to billing insurance company, Patient informed of any privacy concerns related to method of visit Total time spend talking with patient (m inutes): 10
--- OUTSIDE RECORDS SUMMARY | 2024-09-13 11:14 | XMS_ITS ---
Author Organization Mj Bella MD Address [address] [place] [phone] Care Team Providers Care Human Intelligence Name Role Phone Mj Bella Primary Care Provider REASON FOR VISIT refill Medications Medication SIG (Take, Route, Fr equency, Duration) Notes Start Date End Date Status sAXagliptin HCl 5 MG TAKE 1 TABLET BY MO UTH EVERY DAY Once a day for 90 days Activ e Encounters Encounter Location Date Provider Diagnosis Mj Bella MD [address] [place] [phone] 07/31/2024 Mj Bella Plan Of Treatment Medication Medication Name Sig Start Date Stop Date Notes sAXagliptin HCl 5 MG TAKE 1 TABLET BY MO [facility] EVERY DAY Once a day for 90 days Next Appt Details Provider Name:Mj vasquez, 01/04/2025 07:30:00 AM, [address], [address], [place], [phone], Provider Name:Mj vasquez, 01/11/2025 08:30:00 AM, [address], [address], [place], [place], [phone], Progress Notes * Rodolfo WRIGHT PDOB:1950 (73 yo M)Acc No.[id number]:07/31/2024 Patient:?Rodolfo Wright :1950???Age:73 Y???Sex:Male Address: [address], [place] [address] * Refills? Refill sAXagliptin HCl Tablet, 5 MG, 90 Tablet, TAKE 1 TABLET BY MOUTH EVERY DAY, Once a day, 90 days, Refills=3 * true * Date:? Generated for Lolis carlson/Ileana/Aiitting on:?09/13/2024 11:13 AM EST
--- OUTSIDE RECORDS SUMMARY | 2024-09-13 11:14 | XMS_ITS ---
Author Organization Mj Bella MD Address [address] [place] [phone] Care Team Providers Care Rotary Bar Operator Name Role Phone JenaRyleen Primary Care Provider [phone] REASON FOR VISIT P-A Jardiance 25mg Encounters Encounter Location Date Provider Diagnosis Mj Bella MD [address] [place] [address] [place] [phone] 07/25/2024 Mj Bella Plan Of Treatment Next Appt Details Provider Name:Mj Maharaj ier, 01/04/2025 07:30:00 AM, [address] [place] [address], [address], [phone], Provider Name:Mj Maharaj iegregor, 01/11/2025 08:30:00 AM, [address] [place] [address], [address], [phone], Progress Notes * Rodolfo WRIGHT PDOB:1950 (73 yo M)Acc No.[id number]:07/25/2024 Patient:?Rodolfo Wright P :1950???Age:73 Y???Sex:Male Address: [address], [place] [address] * true * Date:? Generated for Lolis carlson/Ileana/eTransmitting on:?09/13/2024 11:14 AM EST
== END 2024-09-13 09:38 | disposition home or self-care (01) ==
LOC: HO.US 09:37
PROVIDERS: PCP Internal Medicine; Visit Provider Internal Medicine
DX: I65.23 Occlusion and stenosis of bilateral carotid arteries (principal)
CPT/HCPCS: 93880

== ENCOUNTER → 2024-09-13 09:39 | Outpatient (BNV) | payer OTHER, SELFPAY | PROVIDERS: PCP Internal Medicine; Visit Provider Radiology Diagnostic Radiology | DX: I25.84 Coronary atherosclerosis due to calcified coronary lesion (principal) | CPT/HCPCS: 93880 ==

== ENCOUNTER → 2024-11-29 10:26 | Outpatient (REF) | payer OTHER, SELFPAY ==
--- NOTE | ~2024-11-29 | NM_ITS ---
EXAMINATION: NM BONE SCAN WHOLE BODY HISTORY: E11.9 DIABETES TYPE II WITHOUT COMPLICATION BACK AND SIDE PAIN. TECHNIQUE: A total body bone scan was performed following the intravenous administration of 34 mCi technetium 99m-MDP. Delayed whole body planar images were obtained. COMPARISON: There are no prior studies for comparison. FINDINGS: There is a small focus of increased uptake involving the left 7th costovertebral junction, which may be degenerative or posttraumatic in nature. There is mild increased uptake involving the AC joints of both shoulders, likely degenerative in nature. The remainder of the visualized osseous structures demonstrate a normal distribution of activity. There is normal bilateral renal uptake. NM/NM bone scan whole body IMPRESSION: Minimal increased uptake involving the left 7th costovertebral junction and the bilateral AC joints, likely degenerative in nature. Otherwise unremarkable whole body bone scan. Electronically signed by: Hang Bundy MD 11/29/2024 03:05 PM EDT
--- OUTSIDE RECORDS SUMMARY | 2024-11-29 12:12 | XMS_ITS ---
Author Organization Mj Bella MD Address [address] [place] [phone] Care Team Providers Care Intern Architect Name Role Phone Mj Bella Primary Care Provider Allergies Allergen (clinical drug ingredient) Drug/Non Drug Allergy documented on EMR Reaction Allergy Type Onset Date Status metformin Metformin HCl diarrhea Drug Allergy Act rohan Results Component Value Reference Range Notes Hemoglobin A1c Reviewed date:10/27/2024 01:24:48 PM Interpretation: Performing Lab: Notes/Report: Hemoglobin A1c 8.2 Glucose, finger stick Reviewed date:10/27/2024 01:11:39 PM Interpretation: Performing Lab: Notes/Report: Value 254 REASON FOR VISIT back pain left and right side x 2 months Medications Medication SIG (Take, Route, Frequency, Duration) Notes Start Date End Date Status Farxiga 10 mg 1 tablet Orally Once a day for 30 days 10/29/2023 Not-Taking Jardiance 25 MG 1 tablet Orally Once a day Active Lantus SoloStar 100 UNIT/ML 25 units Active Indomethacin 50 MG 1 capsule with food or milk Orally Three times a day for 10 days 01/19/2022 Not-Taking Ibuprofen 800 MG 1 tablet with food o r milk as needed Orally every 8 hrs Not-Taking amLODIPine Besylate 5 MG TAKE 1 TABLET B Y MOUTH EVERY DAY Active Lisinopril 5 MG TAKE 1 TABLET BY [place] EVERY DAY Active Pantoprazole Sodium 40 MG 1 tablet Orall y Once a day for 90 days 03/20/2024 Not-Taking Nystatin 295196 UNIT/GM APPLY TOPICALLY TO THE AFFECTED AREA TWICE DAILY for 30 Active sAXagliptin HCl 5 MG TAKE 1 TABLET BY [facility] EVERY DAY Once a day for 90 days Active Zetia 10 MG 1 tablet Orally Once a day Active Atorvastatin Calcium 40 MG TAKE 1 TABLET BY MOUTH EVERY DAY Active Omeprazole 20 MG TAKE 1 CAPSULE BY [facility] EVERY DAY 30 MINUTES BEFORE BREAKFAST for 30 Active Pen [place] 3/16 31G X 5 MM as directed for 90 days 09/19/2019 Acti ve Metoprolol Succinate ER 100 MG TAKE 1 TABLET BY MOUTH EVERY DAY for 90 Active Dexcom G6 Imaging Analyst - as directed 11/02/2022 Not-Taking Dexcom G6 Transmitter - as directed huber ge every 90 days 10/23/2022 Not-Taking Dexcom G6 Sensor - as directed change every 10 days for 90 days 10/23/2022 Not-Taking BD Pen Needle Mini U/F 31G X 5 MM USE 1 PEN TO INJECT MEDICATION DIRECTED for 90 Active Aspirin 81 MG 1 tablet Orally Once a day Active Betamethasone Dipropionate Aug 0.05 % 1 application Externally Once a day for 14 days 09/11/2022 Active FreeStyle Lancets - USE 1 LANCET TO TEST BLOOD SUGAR TWICE A DAY for 50 Active Clopidogrel Bisulfate 75 MG 1 tablet Orally Once a day for 30 day(s) Active Vital Signs Blood pressure systolic 144 mm Hg 10/28/19 25 Blood pressure diastolic 80 mm Hg 025 Height 68 in 10/27/2024 Weight 225 lbs 10/27/2024 BMI 34.21 kg/m2 10/27/2024 weight is up 5 pounds since 2-3-25 Encounters Encounter Location Date Provider Diagnosis Mj Bella MD [address] [place] [address] [place] [phone] 10/27/2024 Mj Bella Type 2 diabetes mellitus without complication E11.9 and Bone pain M89.8X9 Assessments Encounter Date Diagnosis (ICD Code) Assessment Notes Treatment Notes Treatment Clinical Notes Section Notes 10/27/2024 Type 2 diabetes mellitus without complication (ICD-10 - E11.9) 10/27/2024 Bone pain (ICD-10 - M89.8X9) pending diagnostic testing/ order faxed to [facility] dept Plan Of Treatment Medication Medication Name Sig Start Date Stop Date Notes Jardiance 25 MG 1 tablet Orally Once a day Lantus SoloStar 100 UNIT/ML 25 units Treatment Notes Assessment Notes Bone pain pending diagnostic t esting/ order faxed to [facility] dept Pending Test Test Name Order Date NUC WHOLE BODY SCAN BONE 10/27/2024 Next Appt Details Follow Up: after bone, Cesiliao n: Provider Name:Mj vasquez, 01/04/2025 07:30:00 AM, [address] [place] [address], [address], [place], [place], [phone], Provider Name:Mj vasquez, 01/11/2025 08:30:00 AM, [address] [place] [address], [address], [place], [place], [phone], Progress Notes * Rodolfo WRIGHT PDOB:1950 (73 yo M)Acc No.[id number]:10/27/2024 Patient:?Rodolfo WRIGHT Provider:?Mj Bella MD :1950???Age:73 Y???Sex:Male Shaan e:10/27/2024 Address: [address], [id number] Subjective: * Chief Complaints: * ???Back pain left and right side x 2 months * HPI: ???Symptom(s):?patient is a male still having back pain on both sides if he gets up. if he laughs. * ROS:?General/Constitutional:?Denies?Chills.?Denies?Fatigue.?Denies?Fever.?Denies?Headache.?ENT:?Patient denies?decreased sense of smell, any loss of taste, sore throat.?Denies?Sore throat.?Respiratory:?Denies?Cough.?Denies?Shortness of breath at rest.?Denies?Shortness of breath with exertion.?Gastrointestinal:?Denies?Diarrhea.?Denies?Nausea.?Musculoskeletal:?Patient denies?muscle aches.?Peripheral Vascular:?Patient denies?red and blue toes.? * Medical History:? * Surgical History:? * Hospitalization/Major Diagno stic Procedure:? * Medications:?TakingClopidogr el Bisulfate 75 MG Tablet 1 tablet Orally Once a day FreeStyle Lancets - Miscellaneous USE 1 LANCET TO TEST BLOOD SUGAR TWICE A DAY Betamethasone Dipropionate Aug 0.05 % Gel 1 application Externally Once a day Aspirin 81 MG Tablet Chewable 1 tablet Orally Once a day BD Pen Needle Mini U/F 31G X 5 MM Miscellaneous USE 1 PEN TO INJECT MEDICATION DIRECTED Pen [place] 3/16 31G X 5 MM Miscellaneous as directed Omeprazole 20 MG Capsule Delayed Release TAKE 1 CAPSULE BY MOUTH EVERY DAY 30 MINUTES BEFORE BREAKFAST Metoprolol Succinate ER 100 MG Tablet Extended Release 24 Hour TAKE 1 TABLET BY MOUTH EVERY DAY Lantus SoloStar 100 UNIT/ML Solution Pen-injector 25 units Zetia 10 MG Tablet 1 tablet Orally Once a day Atorvastatin Calcium 40 MG Tablet TAKE 1 TABLET BY MOUTH EVERY DAY Jardiance 25 MG Tablet 1 tablet Orally Once a day Lisinopril 5 MG Tablet TAKE 1 TABLET BY MOUTH EVERY DAY amLODIPine Besylate 5 MG Tablet TAKE 1 TABLET BY MOUTH EVERY DAY sAXagliptin HCl 5 MG Tablet TAKE 1 TABLET BY MOUTH EVERY DAY Once a day Nystatin 414748 UNIT/GM Cream APPLY TOPICALLY TO THE AFFECTED AREA TWICE DAILY Taking Clopidogrel Bisulfate 75 MG Tablet 1 tablet Orally Once a day Taking FreeStyle Lancets - Miscellaneous USE 1 LANCET TO TEST BLOOD SUGAR TWICE A DAY Taking Betamethasone Dipropionate Aug 0.05 % Gel 1 application Externally Once a day Taking Aspirin 81 MG Tablet Chewable 1 tablet Orally Once a day Taking BD Pen Needle Mini U/F 31G X 5 MM Miscellaneous USE 1 PEN TO INJECT MEDICATION DIRECTED Taking Pen [place] 3/16 31G X 5 MM Miscellaneous as directed Taking Omeprazole 20 MG Capsule Delayed Release TAKE 1 CAPSULE BY MOUTH EVERY DAY 30 MINUTES BEFORE BREAKFAST Taking Metoprolol Succinate ER 100 MG Tablet Extended Release 24 Hour TAKE 1 TABLET BY MOUTH EVERY DAY Taking Lantus SoloStar 100 UNIT/ML Solution Pen-injector 25 units Taking Zetia 10 MG Tablet 1 tablet Orally Once a day Taking Atorvastatin Calcium 40 MG Tablet TAKE 1 TABLET BY MOUTH EVERY DAY Taking Jardiance 25 MG Tablet 1 tablet Orally Once a day Taking Lisinopril 5 MG Tablet TAKE 1 TABLET BY MOUTH EVERY DAY Taking amLODIPine Besylate 5 MG Tablet TAKE 1 TABLET BY MOUTH EVERY DAY Taking sAXagliptin HCl 5 MG Tablet TAKE 1 TABLET BY MOUTH EVERY DAY Once a day Taking Nystatin 121523 UNIT/GM Cream APPLY TOPICALLY TO THE AFFECTED AREA TWICE DAILY Not-Taking/PRNDexcom G6 Sensor - Miscellaneous as directed change every 10 days Dexcom G6 Transmitter - Miscellaneous as directed change every 90 days Dexcom G6 Imaging Analyst - Device as directed Pantoprazole Sodium 40 MG Tablet Delayed Release 1 tablet Orally Once a day Farxiga 10 mg Tablet 1 tablet Orally Once a day Ibuprofen 800 MG Tablet 1 tablet with food or milk as needed Orally every 8 hrs Indomethacin 50 MG Capsule 1 capsule with food or milk Orally Three times a day Medication List reviewed and reconciled with the patientNot-Taking/PRN Dexcom G6 Sensor - Miscellaneous as directed change every 10 days Not-Taking/PRN Dexcom G6 Transmitter - Miscellaneous as directed change every 90 days Not-Taking/PRN Dexcom G6 Imaging Analyst - Device as directed Not-Taking/PRN Pantoprazole Sodium 40 MG Tablet Delayed Release 1 tablet Orally Once a day Not-Taking/PRN Farxiga 10 mg Tablet 1 tablet Orally Once a day Not-Taking/PRN Ibuprofen 800 MG Tablet 1 tablet with food or milk as needed Orally every 8 hrs Not-Taking/PRN Indomethacin 50 MG Capsule 1 capsule with food or milk Orally Three times a day Medication List reviewed and reconciled with the patient * Allergies:?Metformin HCl: zoe riggins[Allergies Verified] Objective: * Vitals:?Ht: 68, Wt: 225, BMI :34.21, BP:144/80, Repeat BP:120/80, Wt-k.06. weight is up 5 pounds since 09-18-24. * Examination: ???General Examination: ?GENERAL APPEARANCE:?alert, well hydrated, in no distress.?HEAD:?normocephalic.?SKIN:?good turgor.?HEART:?regular rate and rhythm, no murmurs, rubs, gallops.?LUNGS:?no wheezes, rales, rhonchi, good air movement, clear to auscultation bilaterally.?CHEST:?non tender ribs.? Assessment: * Assessment: 1.?Type 2 diabetes mellitus without complication - E11.9 (Primary)???2.?Bone pain - M89.8X9??? Plan: * Treatment: ? Value Reference Range ?Hemoglobin A1c 8.2 ?LAB: Glucose, finger stick (Collection Date & Time - 10/27/2024)* ? Value Reference Range ?Value 254 ?Imaging: NUC WHOLE BODY SCAN BONE2.?Bone pain? Notes: pending diagnostic testing/ order faxed to [facility] dept ?? * Procedure Codes:?65307 ASSAY , GLUCOSE, BLOOD QUANT, Modifiers: QW 55105 GLYCATED HEMOGLOBIN TEST, Modifiers: QW * Follow Up:?after bone * * Sign off status: Completed true * Provider:?Mj Bella MD Date:?0 10/27/2024 Generated for Lolis carlson/Ileana/eTransmitting on:?11/29/2024 12:11 PM EDT History and Physical Notes * HPI (History of Present Illness) Category Sub-Category Detail Notes Category Not es Symptom(s) patient is a ma le still having back pain on both sides if he gets up. if he laughs Examination Category Sub-Category Detail Notes Category Not es General Examination GENERAL APPEARANCE: alert, w ell hydrated, in no distress HEAD: normocephalic HEART: regular rate and rhy thm, no murmurs, rubs, gallops CHEST: non tender ribs LUNGS: no wheezes, rales, r honchi, good air movement, clear to auscultation bilaterally SKIN: good turgor
--- OUTSIDE RECORDS SUMMARY | 2024-11-29 12:12 | XMS_ITS ---
Author Organization Mj Bella MD Address [address] [place] [phone] Care Team Providers Care Virginia Line Attendant Name Role Phone Mj Bella Primary Care Provider Allergies Allergen (clinical drug ingredient) Drug/Non Drug Allergy documented on EMR Reaction Allergy Type Onset Date Status metformin Metformin HCl diarrhea Drug Allergy Act rohan REASON FOR VISIT PAIN IN SIDES x 2 weeks no injury Medications Medication SIG (Take, Route, Frequency, Duration) Notes Start Date End Date Status Farxiga 10 mg 1 tablet Orally Once a day for 30 days 10/29/2023 Not-Taking Ibuprofen 800 MG 1 tablet with food o r milk as needed Orally every 8 hrs Not-Taking Nystatin 111250 UNIT/GM APPLY TOPICALLY TO THE AFFECTED AREA TWICE DAILY for 30 Active Indomethacin 50 MG 1 capsule with food or milk Orally Three times a day for 10 days 01/19/2022 Not-Taking sAXagliptin HCl 5 MG TAKE 1 TABLET BY [facility] EVERY DAY Once a day for 90 days Active Lisinopril 5 MG TAKE 1 TABLET BY [place] [facility] EVERY DAY Active amLODIPine Besylate 5 MG TAKE 1 TABLET B Y MOUTH EVERY DAY Active Atorvastatin Calcium 40 MG TAKE 1 TABLET BY MOUTH EVERY DAY Active Jardiance 25 MG 1 tablet Orally Once a day Active Pantoprazole Sodium 40 MG 1 tablet Orall y Once a day for 90 days 03/20/2024 Not-Taking Metoprolol Succinate ER 100 MG TAKE 1 TABLET BY MOUTH EVERY DAY for 90 Active Omeprazole 20 MG TAKE 1 CAPSULE BY [facility] EVERY DAY 30 MINUTES BEFORE BREAKFAST for 30 Active Lantus SoloStar 100 UNIT/ML 25 units Active Zetia 10 MG 1 tablet Orally Once a day Active Pen [place] 3/16 31G X 5 MM as directed for 90 days 09/19/2019 Acti ve BD Pen Needle Mini U/F 31G X 5 MM USE 1 PEN TO INJECT MEDICATION DIRECTED for 90 Active Dexcom G6 Assembler Knife - as directed 11/02/2022 Active Aspirin 81 MG 1 tablet Orally Once a day Active Dexcom G6 Transmitter - as directed huber ge every 90 days 10/23/2022 Active Clopidogrel Bisulfate 75 MG 1 tablet Orally Once a day for 30 day(s) Active Dexcom G6 Sensor - as directed change every 10 days for 90 days 10/23/2022 Active FreeStyle Lancets - USE 1 LANCET TO TEST BLOOD SUGAR TWICE A DAY for 50 Active Betamethasone Dipropionate Aug 0.05 % 1 application Externally Once a day for 14 days 09/11/2022 Active Vital Signs Blood pressure systolic 128 mm Hg 09/18/19 25 Blood pressure diastolic 70 mm Hg 025 Height 68 in 09/18/2024 Weight 220 lbs 09/18/2024 BMI 33.45 kg/m2 09/18/2024 Encounters Encounter Location Date Provider Diagnosis Mj Bella MD [address] [place], [place] [phone] 09/18/2024 Mj Bella Myalgia, multiple sites M79.18 Assessments Encounter Date Diagnosis (ICD Code) Assessment Notes Treatment Notes Treatment Clinical Notes Section Notes 09/18/2024 Myalgia, multiple sites (ICD-10 - M79.18) will hold atorvastatin for 6 weeks Plan Of Treatment Treatment Notes Assessment Notes Myalgia, multiple sites will hold atorva statin for 6 weeks Next Appt Details Follow Up: 6 Weeks, Reason: Provider Name:Mj Maharaj ier, 01/04/2025 07:30:00 AM, [address], [address], [place], [phone], Provider Name:Mj Maharaj ier, 01/11/2025 08:30:00 AM, [address], [address], [place], [place], [phone], Progress Notes * Rodolfo WRIGHT PDOB:1950 (73 yo M)Acc No.[id number]:09/18/2024 Progress Notes Patient:?Rodolfo WRIGHT Provider:?Mj Bella MD :1950???Age:73 Y???Sex:Male Shaan e:09/18/2024 Address:[address] [place] [address] , [id number] Subjective: * Chief Complaints: * ???PAIN IN SIDES x 2 weeks n o injury * HPI: ???Symptom(s):?patient is a 73 yo male here with cmplaint of pain on both sides with laughing and moving.? both sides. has been there 3 or 4 weeks and goes away at times, no speific injury. * ROS:?General/Constitutional:?Denies?Chills.?Denies?Fatigue.?Denies?Fever.?Denies?Headache.?ENT:?Patient denies?decreased sense of smell, any [...] Gel 1 application Externally Once a day Dexcom G6 Sensor - Miscellaneous as directed change every 10 days Dexcom G6 Transmitter - Miscellaneous as directed change every 90 days Dexcom G6 Assembler Knife - Device as directed Aspirin 81 MG Tablet Chewable 1 tablet Orally Once a day BD Pen Needle Mini U/F 31G X 5 MM Miscellaneous USE 1 PEN TO INJECT MEDICATION DIRECTED Pen [place] 3/16 31G X 5 MM Miscellaneous as [...] MOUTH EVERY DAY Once a day Nystatin 045187 UNIT/GM Cream APPLY TOPICALLY TO THE AFFECTED AREA TWICE DAILY Taking Clopidogrel Bisulfate 75 MG Tablet 1 tablet Orally Once a day Taking FreeStyle Lancets - Miscellaneous USE 1 LANCET TO TEST BLOOD SUGAR TWICE A DAY Taking Betamethasone Dipropionate Aug 0.05 % Gel 1 application Externally Once a day Taking Dexcom G6 Sensor - Miscellaneous as directed change every 10 days Taking Dexcom G6 Transmitter - Miscellaneous as directed change every 90 days Taking Dexcom G6 Assembler Knife - Device as directed Taking Aspirin 81 MG Tablet Chewable 1 tablet Orally Once a day Taking BD Pen Needle Mini U/F 31G X 5 MM Miscellaneous USE 1 PEN TO INJECT MEDICATION DIRECTED Taking Pen [place] 3/16 31G X 5 MM Miscellaneous as [...] EVERY DAY Once a day Taking Nystatin 212479 UNIT/GM Cream APPLY TOPICALLY TO THE AFFECTED AREA TWICE DAILY Not-Taking/PRNPantoprazole Sodium 40 MG Tablet Delayed Release 1 tablet Orally Once a day Farxiga 10 mg Tablet 1 tablet Orally Once a day Ibuprofen 800 MG Tablet 1 tablet with food or milk as needed Orally every 8 hrs Indomethacin 50 MG Capsule 1 capsule with food or milk Orally Three times a day Not-Taking/PRN Pantoprazole Sodium 40 MG Tablet Delayed Release 1 tablet Orally Once a day Not-Taking/PRN Farxiga 10 mg Tablet 1 tablet Orally Once a day Not-Taking/PRN Ibuprofen 800 MG Tablet 1 tablet with food or milk as needed Orally every 8 hrs Not-Taking/PRN Indomethacin 50 MG Capsule 1 capsule with food or milk Orally Three times a day DiscontinuedZithromax Z-Carlos Manuel 250 MG Tablet 2 tablet on the first day, then 1 tablet daily for 4 days Orally Once a day Medication List reviewed and reconciled with the patientDiscontinued Zithromax Z-Carlos Manuel 250 MG Tablet 2 tablet on the first day, then 1 tablet daily for 4 days Orally Once a day Medication List reviewed and reconciled with the patient * Allergies:?Metformin HCl: zoe riggins[Allergies Verified] Objective: * Vitals:?Ht: 68, Wt: 220, BMI :33.45, BP:128/70, Wt-k.79. * Examination: ???General Examination: ?GENERAL APPEARANCE:?alert, well hydrated, in no distress.?HEAD:?normocephalic.?SKIN:?good turgor.?HEART:?no murmurs, rubs, gallops, regular rate and rhythm.?LUNGS:?good air movement, no wheezes, rales, rhonchi, clear to auscultation bilaterally.?ABDOMEN:?no hepatosplenomegaly, no guarding or rigidity non tender.? Assessment: * Assessment: 1.?Myalgia, multiple sites - M79.18 (Primary)??? Plan: * Treatment: * Procedure Codes:? * Follow Up:?6 Weeks * * Sign off status: Completed true * Provider:?Mj Bella MD Date:?0 09/18/2024 Generated for Lolis carlson/Ileana/Davonte on:?11/29/2024 12:12 PM EDT History and Physical Notes * HPI (History of Present Illness) Category Sub-Category Detail Notes Category Not es Symptom(s) patient is a 73 yo male here with cmplaint of pain on both sides with laughing and moving. both sides. has been there 3 or 4 weeks and goes away at times, no speific injury Examination Category Sub-Category Detail Notes Category Not es General Examination GENERAL APPEARANCE: alert, w ell hydrated, in no distress HEAD: normocephalic HEART: no murmurs, rubs, ga llops, regular rate and rhythm LUNGS: good air movement, n o wheezes, rales, rhonchi, clear to auscultation bilaterally ABDOMEN: no hepatosplenomegal y, no guarding or rigidity non tender SKIN: good turgor
--- OUTSIDE RECORDS SUMMARY | 2024-11-29 12:12 | XMS_ITS | Patient Health Record ---
Author Organization Mj Bella MD Address [address] [place] [phone] Care Team Providers Care Dairy Consultant Name Role Phone Mj Bella Primary Care Provider Allergies Allergen (clinical drug ingredient) Drug/Non Drug Allergy documented on EMR Reaction Allergy Type Onset Date Status metformin Metformin HCl diarrhea Drug Allergy Act rohan Results Component Value Reference Range Notes Hemoglobin A1c Reviewed date:10/27/2024 01:24:48 PM Interpretation: Performing Lab: Notes/Report: Hemoglobin A1c 8.2 Complete Blood Count Auto Di ff Reviewed date:12/31/2023 08:50:17 PM Interpretation: Performing Lab:[facility], [address] [place] [phone] Notes/Report: White Blood Count 7.8 4.8-10.8 X10*3/uL Red Blood Count 5.08 4.60-5.80 X10*6/uL Hemoglobin 15.8 14.0-18.0 g/dl Hematocrit 47.1 42.0-52.0 % Mean Corpuscular Volume 92.7 80.0-98.0 fL Mean Corpuscular Hemoglobin 31.1 27.0-33.0 pg Mean Corpuscular HGB Conc 33.5 31.0-36.0 g/dl Red Cell Distribution Width 12.7 11.0-16.0 % Platelet Count 216 160-400 X10*3/uL Mean Platelet Volume 10.9 9.4-12.4 fL Neutrophils Percent Auto 61.8 45-73 % Imm Gran Pct Auto 0.4 0.0-0.4 % Lymphocytes Percent Auto 23.4 20-40 % Monocytes Percent Auto 11.8 2-11 % Eosinophils Percent Auto 2.2 0-4 % Basophils Percent Auto 0.4 0-2 % NRBC Pct Auto 0.0 0.0-0.2 /100WBC Neutrophils Absolute Auto 4.8 2.0-8.3 x10*3/uL Imm Gran Abs Auto 0.03 0.00-0.03 X10*3/uL Lymphocytes Absolute Auto 1.8 1.2-4.9 X10*3/uL Monocytes Absolute Auto 0.9 0.1-1.2 X10*3/uL Eosinophils Absolute Auto 0.2 0.0-0.4 X10*3/uL Basophils Absolute Auto 0.0 0.0-0.2 X10*3/uL NRBC Abs Auto 0.000 0.0-0.012 X10*3/uL Comprehensive [place]. Panel Fa st Reviewed date:01/03/2024 02:12:58 PM Interpretation: Performing Lab:[facility], [address] [place] [phone] Notes/Report: Sodium 141 135-145 mmol/L Potassium 3.9 3.3-5.1 mmol/L Chloride 107 96-108 mmol/L Carbon Dioxide 26 22-29 mmol/L Anion Gap 12 12-20 Blood Urea Nitrogen 16 9-16 mg/dL Creatinine 0.87 0.5-1.4 mg/dL Estimated Glomerular Filt Rate > 60 NOTE: For [place] individuals, multiply the result by 1.210. Chronic Kidney Disease: Estimated GFR < 60 mL/min/1.73m2 Severe Kidney Disease: Estimated GFR < 15 mL/min/1.73m2 Glucose Fasting 131 60-99 mg/dL A fasting glucose of 126 mg/dl or greater on more than one occasion is considered diagnostic of diabetes. Calcium 8.8 8.4-10.2 mg/dL Bilirubin Total 0.7 0.0-1.0 mg/dL Aspartate Amino Transferase 19 5-37 U/L Alanine Aminotransferase 21 0-40 U/L Total Protein 7.2 6.5-8.0 g/dL Albumin Level 3.9 3.5-5.0 g/dL Alkaline Phosphatase 92 39-117 U/L Lipid Panel Reviewed date:12/31/2023 08:42:51 PM Interpretation: Performing Lab:[facility], [address] [place] [phone] Notes/Report: Triglycerides 230 <150 mg/dL Desirable Triglyceride: less than 150 mg/dL Borderline High Triglyceride 150-199 mg/dL High Triglyceride: 200-499 mg/dL Very High Triglyceride: greater than or equal to 5OO mg/dL Cholesterol 141 <200 mg/dL Desirable Cholesterol: less than 200 mg/dL Borderline High Cholesterol: 200-239 mg/dL High Cholesterol: greater than 239 mg/dL LDL Cholesterol Calculated 55 <100 mg/dL Desirable LDL: less than 100 mg/dL Near Optimal/Above Optimal LDL: 110-129 mg/dL Borderline High LDL: 130-159 mg/dL High LDL: 160-189 mg/dL Very High LDL: greater than or equal to 190 mg/dL HDL Cholesterol 40 >40 mg/dL Desirable HDL: greater than 40 mg/dL Note: This HDL assay may give artificially low results in patients with liver disease. PSA,Total (Free>4and<10) Reviewed date:12/31/2023 08:49:00 PM Interpretation: Performing Lab:[facility], [address] [place] [phone] Notes/Report: PSA,Total (Free>4and<10) 1.99 0.00-4.00 ng/mL A Free PSA was not performed: The percentage of Free PSA can be used to enhance the differentiation of prostate cancer from benign prostatic disease in subjects whose PSA levels are between 4.0 and 10.0 ng/mL. For subjects whose PSA levels are below 4.0 or above 10.0 ng/mL, the risk of prostate cancer is determined on the basis of the PSA alone. Therefore the % Free PSA is recommended only for those subjects whose PSA levels are between 4.0 and 10.0 ng/mL. PSA methodology: Dias Alinity i Chemiluminescent Microparticle Immunoassay (CMIA) Microalbumin, Random Reviewed date:12/31/2023 08:49:36 PM Interpretation: Performing Lab:[facility], [address] [place] [phone] Notes/Report: Creatinine Urine 58.76 Microalbumin Urine 73.0 Microalbum/Creatinine Ratio Ur 124.2 <30 ug/mg cr Albumin/Creatinine Ratio Reference Ranges: Normal: < 30 ug/mg creatinine Microalbuminuria: 30 - 300 ug/mg creatinine Clinical Albuminuria: > 300 ug/mg creatinine Hemoglobin A1c Reviewed date:12/31/2023 08:34:15 PM Interpretation: Performing Lab:[facility], [address] [place] [phone] Notes/Report: Hemoglobin A1c % 9.0 <6.0 % Hemoglobin A1C Reference Range Adults: 4.8 - 6.0 % Non diabetic: < 6.0 % Goal: < 7.0 % Additional Action Suggested: > 8.0 % Note: Hemoglobin A1c results are invalid for patients with abnormal amounts of HbF. Blood transfusions may impact the HbA1c concentration in the patient sample. Estimated Average Glucose 212 eAG = Estimated average glucose which is %A1C expressed as average glucose, using the formula of the [id number]-Gvftjfn Average Glucose study (ADAG), Diabetes Care, Vol.31,#8, Mar. 2007 UA ClnCatch+Micro w/rflx Cul t Reviewed date:01/03/2024 05:24:50 PM Interpretation: Performing Lab:[facility], [address] [place] [phone] Notes/Report: Urine, Clean Catch Color Urine Yellow Appearance Urine Clear PH 5.5 5.0-9.0 Glucose Urine UA >=1000 Negative mg/dL Urine Blood Negative Negative Specific [place] - Urine >= 1.030 1.005-1.025 Urine Protein Trace Neg-Trace mg/dL Urine Ketones Negative Negative mg/dL Nitrite Urine Negative Negative Leukocyte Esterase Urine Trace Negative RBC Urine 0-2 0-2 /HPF WBC Urine 11-20 0-5 /HPF Squamous Epithelial Cell Urine 0-2 0-2 /HPF Bacteria Urine None Seen None Seen Hyaline Casts Urine 0-2 0-2 /LPF Yeast Urine Present Liver Panel Reviewed date:07/04/2024 08:08:32 PM Interpretation: Performing Lab:[facility], [address] [place] [phone] Notes/Report: Bilirubin Total 0.6 0.0-1.0 mg/dL Bilirubin Direct 0.2 0.0-0.5 mg/dL Aspartate Amino Transferase 25 5-37 U/L Alanine Aminotransferase 20 0-40 U/L Total Protein 6.9 6.5-8.0 g/dL Albumin Level 3.8 3.5-5.0 g/dL Alkaline Phosphatase 103 39-117 U/L Glucose Fasting Reviewed date:07/04/2024 08:06:38 PM Interpretation: Performing Lab:[facility], [address] [place] [phone] Notes/Report: Glucose Fasting 182 60-99 mg/dL A fasting glucose of 126 mg/dl or greater on more than one occasion is considered diagnostic of diabetes. Hemoglobin A1c Reviewed date:07/04/2024 08:06:14 PM Interpretation: Performing Lab:[facility], [address] [place] [phone] Notes/Report: Hemoglobin A1c % 9.3 <6.0 % Hemoglobin A1C Reference Range Adults: 4.8 - 6.0 % Non diabetic: < 6.0 % Goal: < 7.0 % Additional Action Suggested: > 8.0 % Note: Hemoglobin A1c results are invalid for patients with abnormal amounts of HbF. Blood transfusions may impact the HbA1c concentration in the patient sample. Estimated Average Glucose 220 eAG = Estimated average glucose which is %A1C expressed as average glucose, using the formula of the K9T-Hvahgvp Average Glucose study (ADAG), Diabetes Care, Vol.31,#8, Mar. 2007 Occult Blood, Stool, Guaiac Reviewed date:01/06/2024 11:48:46 AM Interpretation:Negative Performing Lab: Notes/Report: Negative Occult Blood, Stool, Guaiac Neg Glucose, finger stick Reviewed date:10/27/2024 01:11:39 PM Interpretation: Performing Lab: Notes/Report: Value 254 Urine Culture Reviewed date:01/01/2024 06:27:29 PM Interpretation: Performing Lab:[facility], [address] [place] [phone] Notes/Report: Urine Culture Report Result Urine Culture > 100,000 cfu/ml Urine Culture Mixed bacterial сергей a characteristic of Urine Culture urogenital contamination. US retroperitoneal comp Reviewed date:07/29/2024 02:44:09 PM Interpretation: Performing Lab: Notes/Report: [address] [place] [address] Ultrasound Report Signed Patient: Rodolfo Dunn MR#: [id number] 0 : 1950 Acct:[id number] Age/Sex: 73 / M ADM Date: 05/30/24 Loc: HO.US Attending Dr: Wendy Burnett MD Ordering Physician: Wendy Burnett MD Date of Service: 05/30/24 Procedure(s): US retroperitoneal comp Accession Number(s): [id number] cc: Wendy Burnett MD; Mj Bella MD EXAMINATION: US RETROPERITONEAL COMPLETE (RENAL) CLINICAL INFORMATION: Benign prostatic hyperplasia with lower urinary tract symptoms. COMPARISON: None available. TECHNIQUE: Real-time imaging of the kidneys and bladder. FINDINGS: RIGHT KIDNEY: 12.7 x 6.2 x 5.7 cm (SAG x AP x TRV). The kidney is normal in size, contour, and echogenicity. Renal cortical thickness is normal. No renal calculi or hydronephrosis. A benign mid renal 1.4 cm Bosniak class I renal cyst is noted which requires no additional imaging or follow up. No solid renal masses are seen. LEFT KIDNEY: 11.5 x 6.7 x 4.9 cm (SAG x AP x TRV). The kidney is normal in size, contour, and echogenicity. Renal cortical thickness is normal. No calculi or focal parenchymal lesions. No hydronephrosis. BLADDER: Well distended and normal. Bilateral ureteral jets are demonstrated. Prevoid bladder volume is 152.0 mL. Postvoid bladder volume is 45.3 mL. ADDITIONAL FINDINGS: The prostate is enlarged at 49 cc US/US retroperitoneal comp IMPRESSION: Prostatomegaly with 49 cc prostate and 45.3 cc postvoid residual. Electronically signed by: Dominic Marcelino MD 07/29/2024 10:19 AM EST RP Dictated By: Dominic Marcelino MD Signed By: <Electronically signed by Dominic Marcelino MD in OV> 07/29/24 1019 DD/ 1000 TD/TT: 05/30/24 1030 : [place] [address] Ultrasound Report Signed Patient: Rodolfo Dunn MR#: [id number] 0 : 1950 Acct:[id number] Age/Sex: 73 / M ADM Date: 05/30/24 Loc: HO.US Attending Dr: Wendy Burnett MD Ordering Physician: Wendy Burnett MD Date of Service: 05/30/24 Procedure(s): US retroperitoneal comp Accession Number(s): [id number] cc: Shawn Burnett MD; Mj Bella MD EXAMINATION: US RETROPERITONEAL COMPLETE (RENAL) CLINICAL INFORMATION: Benign prostatic hyperplasia with lower urinary tract symptoms. COMPARISON: None available. TECHNIQUE: Real-time imaging of the kidneys and bladder. FINDINGS: RIGHT KIDNEY: 12.7 x 6.2 x 5.7 cm (SAG x AP x TRV). The kidney is normal in size, contour, and echogenicity. Renal cortical thickness is normal. No renal calculi or hydronephrosis. A benign mid renal 1.4 cm Bosniak class I abhishek l cyst is noted which requires no additional imaging or follow up . No solid renal masses are seen. LEFT KIDNEY: 11.5 x 6.7 x 4.9 cm (SAG x AP x TRV). The kidney is normal in size, contour, an d echogenicity. Renal cortical thickness is normal. No calculi or focal parenchymal lesions. No hydronephrosis. BLADDER: Well disten ded and normal. Bilateral ureteral jets are demonstrated. Prevoi d bladder volume is 152.0 mL. Postvoid bladder volume is 45.3 mL. ADDITIONAL FINDINGS: The prostate is enlarged at 49 cc US/US retroperitoneal comp IMPRESSION: Prostatomegaly with 49 cc prostate and 45.3 cc postvoid residual. Electronically clint d by: Dominic Marcelino MD 07/29/2024 10:19 AM [facility] [place] Dictated By: Dominic Marcelino MD Signed By: <Electronically signed by Dominic Marcelino MD in OV> 07/29/24 1019 DD/ 1000 TD/TT: 05/30/24 1030 : Lipid Panel Reviewed date:07/04/2024 08:08:23 PM Interpretation: Performing Lab:[facility], [address] [place] [phone] Notes/Report: Triglycerides 298 <150 mg/dL Desirable Triglyceride: less than 150 mg/dL Borderline High Triglyceride 150-199 mg/dL High Triglyceride: 200-499 mg/dL Very High Triglyceride: greater than or equal to 5OO mg/dL Cholesterol 151 <200 mg/dL Desirable Cholesterol: less than 200 mg/dL Borderline High Cholesterol: 200-239 mg/dL High Cholesterol: greater than 239 mg/dL LDL Cholesterol Calculated 57 <100 mg/dL Desirable LDL: less than 100 mg/dL Near Optimal/Above Optimal LDL: 110-129 mg/dL Borderline High LDL: 130-159 mg/dL High LDL: 160-189 mg/dL Very High LDL: greater than or equal to 190 mg/dL HDL Cholesterol 35 >40 mg/dL Desirable HDL: greater than 40 mg/dL Note: This HDL assay may give artificially low results in patients with liver disease. Verito Ibarra Reviewed date:07/04/2024 08:06:02 PM Interpretation: Performing Lab:[facility], [address] [place] [phone] Notes/Report: Verito Ibarra See Note Specimen held untested for 24 hours; Call to request Chemistry testing. US carotid duplex BI Reviewed date:09/14/2024 10:04:12 AM Interpretation: Performing Lab: Notes/Report: [address] [address] Ultrasound Report Signed Patient: Rodolfo Dunn MR#: [id number] 0 : 1950 Acct:[id number] Age/Sex: 73 / M ADM Date: 09/13/24 Loc: HO.US Attending Dr: Mj Bella MD Ordering Physician: Mj Bella MD Date of Service: 09/13/24 Procedure(s): US carotid duplex BI Accession Number(s): [id number] cc: Mj Bella MD EXAMINATION: US EXTRACRANIAL CAROTID DUPLEX, BILATERAL CLINICAL INFORMATION: Carotid stenosis COMPARISON: January 09, 2020. TECHNIQUE: Real-time ultrasound and Doppler techniques (integrating B-mode 2-D vascular images, Doppler spectral analysis and color-flow Doppler imaging) were utilized to interrogate the extracranial carotid arteries, the vertebral arteries and proximal subclavian arteries bilaterally. The degree of stenosis is determined by criteria similar to NASCET. FINDINGS: Right Side: 1. There is mild calcified atherosclerotic plaque seen in the bifurcation/proximal ICA region. 2. The common carotid artery PSV proximally is 116 cm/s.. 3. The proximal internal carotid artery velocities are 60 cm/s systolic and 17 cm/s diastolic. 4. The proximal external carotid artery PSV is 81 cm/s. 5. The vertebral artery shows antegrade flow. 6. The subclavian artery waveforms are triphasic. Left Side: 1. There is calcified atherosclerotic plaque seen in the bifurcation/proximal ICA region. 2. The common carotid artery PSV proximally is 97 cm/.. 3. The proximal internal carotid artery velocities are 73 cm/s systolic and 16 cm/s diastolic. 4. The proximal external carotid artery PSV is 73 cm/s. 5. The vertebral artery shows antegrade flow. 6. The subclavian artery waveforms are triphasic. US/US carotid duplex BI IMPRESSION: 1. RIGHT: Calcified plaque. No hemodynamically significant stenosis by ultrasound criteria. 2. LEFT: Calcified plaque. No hemodynamically significant stenosis by ultrasound criteria. 3. There is no change in the category severity of disease when compared to the previous study dated . Electronically signed by: Miguel Castro MD 09/13/2024 11:33 AM EST Dictated By: Miguel Camargo MD Signed By: <Electronically signed by Miguel Loyd MD in OV> 09/13/24 1133 DD/ 1020 TD/TT: 09/13/24 1049 : [address] [address] Ultrasound Report Signed Patient: Rodolfo Dunn MR#: [id number] 0 : 1950 Acct:[id number] Age/Sex: 73 / M ADM Date: 09/13/24 Loc: .US Attending Dr: Mj Bella MD Ordering Physician: Mj Bella MD Date of Service: 09/13/24 Procedure(s): US carotid duplex BI Accession Number(s): [id number] cc: Mj Bella MD EXAMINATION: US EXTRACRANIAL VANCE TID DUPLEX, BILATERAL CLINICAL INFORMATION: Carotid stenosis COMPARISON: January 09, 2020. TECHNIQUE: Real-time ultrasound and Doppler techniques (integrating B-mode 2-D vascular images, Doppler spectral analysis and color-flow Doppler imaging) were utilized to interrog ate the extracranial carotid arteries, the vertebral arteries a nd proximal subclavian arteries bilaterally. The degree of stenosis i s determined by criteria similar to NASCET. FINDINGS: Right Side: 1. There is mild calcified atherosclerotic plaque seen in the bifurcation/proximal ICA region. 2. The common caroti d artery PSV proximally is 116 cm/s.. 3. The proximal internal carotid artery velocities are 60 cm/s systolic and 17 cm/s diastolic. 4. The proximal external carotid artery PSV is 81 cm/s. 5. The vertebral art sea shows antegrade flow. 6. The subclavian artery waveforms are triphasic. Left Side: 1. There is calcifie d atherosclerotic plaque seen in the bifurcation/proximal ICA region. 2. The common caroti d artery PSV proximally is 97 cm/.. 3. The proximal internal carotid artery velocities are 73 cm/s systolic and 16 cm/s diastolic. 4. The proximal external carotid artery PSV is 73 cm/s. 5. The vertebral art sea shows antegrade flow. 6. The subclavian artery waveforms are triphasic. US/US carotid duplex BI IMPRESSION: 1. RIGHT: Calcified plaque. No hemodynamically significant stenosis by ultrasound criteria. 2. LEFT: Calcified plaque. No hemodynamically significant stenosis by ultrasound criteria. 3. There is no gottlieb e in the category severity of disease when compared to the previous stud y dated . Electronically clint d by: Miguel Castro MD 09/13/2024 11:33 AM EST RP Dictated By: Miguel Carpenter MD Signed By: <Electronically signed by Miguel Loyd MD in OV> 09/13/24 1133 DD/ 1020 TD/TT: 09/13/24 1049 : Reason For Referral Reason prostt irregularity Diagnosis 1 Prostate irregularit y (N42.9) Referral Organization Mj Bella MD Referring Provider First Name Mj Referring Provider Last Name Jena Referring Provider Speciality Internal M edicine Referred Provider Good Steven Referred Provider Specialty Urology General Notes Letty Dey 01:25:11 PM EDT > info faxed [phone] Annette 01/20/2024 02:49:33 PM EDT > was told they would be calling patient today for an appt , Letty Dey 01/25/2024 10:37:00 AM EDT > info mailed to patient Referral Priority Routine Referral Appointment Date 03/02/2024 Reason skin lesion Diagnosis 1 Skin lesion (L98.9) Referral Organization Mj Bella MD Referring Provider First Name Mj Referring Provider Last Name Jena Referring Provider Speciality Internal edicine Referred Provider [employer] [facility] [employer] Referred Provider Specialty Dermatology General Notes Letty Dey 01:25:43 PM EDT > info faxed , Letty Dey 02/07/2024 11:23:10 AM EDT > appt is with Yissel Mancuso Annette 02/07/2024 11:24:49 AM EDT > info mailed to patient Referral Priority Routine Referral Appointment Date 03/15/2024 Medications Medication SIG (Take, Route, Frequency, Duration) Notes Start Date End Date Status Zetia 10 MG 1 tablet Orally Once a day Active Dexcom G6 Radio Antenna Installer - as directed 11/02/2022 Not-Taking amLODIPine Besylate 5 MG TAKE 1 TABLET B Y MOUTH EVERY DAY Active Dexcom G6 Transmitter - as directed [facility] every 90 days 10/23/2022 Not-Taking Lisinopril 5 MG TAKE 1 TABLET BY [place] EVERY DAY Active Dexcom G6 Sensor - as directed change every 10 days for 90 days 10/23/2022 Not-Taking Betamethasone Dipropionate Aug 0.05 % 1 application Externally Once a day for 14 days 09/11/2022 Active Omeprazole 20 MG TAKE 1 CAPSULE BY [facility] EVERY DAY 30 MINUTES BEFORE BREAKFAST for 30 Active Farxiga 10 mg 1 tablet Orally Once a day for 30 days 10/29/2023 Not-Taking Pen Laceys Spring 3/16 31G X 5 MM as directed for 90 days 09/19/2019 Acti ve Pantoprazole Sodium 40 MG 1 tablet Orall y Once a day for 90 days 03/20/2024 Not-Taking Atorvastatin Calcium 40 MG TAKE 1 TABLET BY MOUTH EVERY DAY for 120 Active BD Pen Needle Mini U/F 31G X 5 MM USE 1 PEN TO INJECT MEDICATION DIRECTED for 90 Active Nystatin 586814 UNIT/GM APPLY TOPICALLY TO THE AFFECTED AREA TWICE DAILY for 30 Active Aspirin 81 MG 1 tablet Orally Once a day Active sAXagliptin HCl 5 MG TAKE 1 TABLET BY [facility] EVERY DAY Once a day for 90 days Active FreeStyle Lancets - USE 1 LANCET TO TEST BLOOD SUGAR TWICE A DAY for 50 Active Lantus SoloStar 100 UNIT/ML 25 units Active Clopidogrel Bisulfate 75 MG 1 tablet Orally Once a day for 30 day(s) Active Indomethacin 50 MG 1 capsule with food or milk Orally Three times a day for 10 days 01/19/2022 Not-Taking Jardiance 25 MG TAKE 1 TABLET BY [place] EVERY DAY for 90 days Active Metoprolol Succinate ER 100 MG TAKE 1 TABLET BY MOUTH EVERY DAY for 90 Active Ibuprofen 800 MG 1 tablet with food o r milk as needed Orally every 8 hrs Not-Taking Immunizations Vaccine Route Administration Date Status Comme nts Flu Vaccine IM Intramuscular 06/09/2013 Administered Flu Vaccine IM Intramuscular 06/19/2014 Administered Hepatitis A (adult) Unknown 07/03/2014 Administered TRA EMILY MED TDaP Unknown 07/03/2014 Administered TRAVEL MED zFluzone Quadrivalent IM Intramuscular 07/30/2015 Administ ered Fluarix Quadrivalent IM Intramuscular 04/28/2016 Administe red Fluarix Quadrivalent IM Intramuscular 04/16/2017 Administe red Fluarix Quadrivalent IM Intramuscular 06/06/2018 Administe red Fluarix Quadrivalent IM Intramuscular 04/25/2019 Administe red PPSV23 (Pnemovax) IM Intramuscular 03/05/2020 Administered Shingrix IM Intramuscular 04/02/2020 Administered Influenza High Dose IM Intramuscular 04/25/2020 Administer ed Shingrix IM Intramuscular 06/24/2020 Administered SARS-COV-2 Pfizer Unknown 10/26/2020 Administered SARS-COV-2 Pfizer Unknown 11/16/2020 Administered Influenza High Dose IM Intramuscular 04/25/2021 Administer ed SARS-COV-2 Pfizer Unknown 08/10/2021 Administered Influenza High Dose IM Intramuscular 04/24/2022 Administer ed Fluarix Quadrivalent - 150 IM Intramuscular 07/04/2024 Administered PPSV23 (Pnemovax) Unknown 01/15/2015 Refused Prevnar 13 Unknown 05/17/2017 Refused Prevnar 13 Unknown 12/13/2018 Refused Prevnar 13 Unknown 03/27/2021 Refused Social History Tobacco Use: Social History Observation Description Date Details (start date - stop date) Never Smoker NA - NA Tobacco Use/Smoking Question Answer Notes Patient is a nonsmoker Additional Findings: Tobacco Non-User Cu rrent non-smoker, currently using no form of tobacco Alcohol Screen Question Answer Notes Did you have a drink contain ing alcohol in the past year? Yes How often did you have a dri nk containing alcohol in the past year? Monthly or less (1 point) How many drinks did you have on a typical day when you were drinking in the past year? 1 or 2 drinks (0 point) How often did you have 6 or more drinks on one occasion in the past year? Never (0 point) Points 1 Interpretation Negative Problems Problem Type SNOMED Code ICD Code Onset Dates Problem Status W/U Status Risk Notes Problem 14221588 Essential hypert ension (I10) Active confirmed Problem 50468432 Type 2 diabetes mellitus without complication (E11.9) Active confirmed Problem 111012990 Low HDL (under 4 0) (E78.6) Active confirmed Problem 53206943 Type 2 diabetes, controlled, with neuropathy (E11.40) Active confirmed Problem 201844117 Elevated triglyc erides with high cholesterol (E78.2) Active confirmed Problem 183759596 Hypoglycemia (E16.2) Active confirmed Problem 045607768 Schatzki's ring (K22.2) Active confirmed Problem 786183369 S/P drug eluting coronary stent placement (Z95.5) Active confirmed Problem 175042123 History of anter ior wall myocardial infarction (I25.2) Active confirmed Problem 629035707 Pure hypercholesterolemia (E78.00) Active confirmed Problem 98572167 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) Active confirmed Problem 116144711 Elevated PSA (R97.20) Active confirme d Problem 439056712 Coronary artery disease of [place] artery of [place] heart with stable angina pectoris (I25.118) Active confirmed Problem 59703818 WM (obstructive sleep apnea) (G47.33) Active confirmed Problem 591030766 BMI 31.0-31.9,ad ult (Z68.31) Active confirmed Problem Gout (81732189) Acute gout invol ving toe of left foot, unspecified cause (M10.9) Active confirmed Problem Sialoadenitis (10338859) Parotiditis (K11.20) Active confirmed Problem 79940685 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 Vital Signs Blood pressure diastolic 80 mm Hg 10/27/2024 ish ght is up 5 pounds since 09-18-24 Height 68 in 10/27/2024 weight is up 5 pounds since 09-18-24 Blood pressure systolic 144 mm Hg 10/27/2024 weig ht is up 5 pounds since 09-18-24 Weight 225 lbs 10/27/2024 weight is up 5 pounds since 09-18-24 BMI 34.21 kg/m2 10/27/2024 weight is up 5 pounds since 09-18-24 Encounters Encounter Location Date Provider Diagnosis Mj Bella MD [address] [place] [address] Drive [address] [place] [address] [id number] 12/31/2023 Mj Bella Blood tests for rout ine general physical examination Z00.00 ; Elevated triglycerides with high cholesterol E78.2 ; Pure hypercholesterolemia E78.00 ; Essential hypertension I10 and Type 2 diabetes, controlled, 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 Mj Bella MD [address] [place] [address] Drive [address] [place] [address] [id number] 07/04/2024 Mj Bella Type 2 diabetes sundeep itus without complication E11.9 ; Encounter for immunization Z23 and Elevated triglycerides with high cholesterol E78.2 Mj Bella MD [address] [place] [address] [address] [place] [address] [id number] 01/06/2024 Mj Bella Type 2 diabetes sundeep itus without complication E11.9 ; Annual physical exam Z00.00 ; Prostate irregularity N42.9 ; Skin lesion L98.9 ; Oral mucosal lesion K13.70 ; Pure hypercholesterolemia E78.00 ; Essential hypertension I10 ; Schatzki's ring K22.2 ; Colon cancer screening Z12.11 and Depression screening Z13.31 Mj Bella MD [address] [place] [address] [id number] 02/28/2024 Mj Bella COVID-19 U07.1 Mj Bella MD [address] [place] [address] [id number] 07/11/2024 Mj Bella Type 2 diabetes sundeep itus without complication E11.9 ; S/P drug eluting coronary stent placement Z95.5 ; Bilateral carotid artery stenosis I65.23 ; Pure hypercholesterolemia E78.00 and Essential hypertension I10 Mj Bella MD [address] [place] [address] [id number] 08/18/2024 Mj Bella Purulent bronchitis J41.1 Mj Bella MD [address] [place] [address] [id number] 09/18/2024 Mj Bella Myalgia, multiple si hemalatha M79.18 Mj Bella MD [address] [place] [address] [id number] 10/27/2024 Mj Bella Type 2 diabetes sundeep itus without complication E11.9 and Bone pain M89.8X9 Mj Bella MD [address] [place] [address] [id number] 03/20/2024 Mj Bella MD [address] [place] [address] [id number] 07/25/2024 Mj Bella MD [address] [place] [address] [id number] 07/31/2024 Mj Bella MD [address] [place] [address] [id number] 11/06/2024 Mj Bella Type 2 diabetes sundeep itus without complication E11.9 Assessments Encounter Date Diagnosis (ICD Code) Assessment Notes Treatment Notes Treatment Clinical Notes Section Notes 12/31/20[address] ine general physical examination (ICD-10 - Z00.00) 12/31/2023 Elevated triglycerid es with high cholesterol (ICD-10 - E78.2) 07/04/2024 Type 2 diabetes mellitus without complication (ICD-10 - E11.9) 07/04/2024 Encounter for immunization (ICD-10 - Z23) 01/06/2024 Type 2 diabetes mellitus without complication (ICD-10 - E11.9) will cntinue current regiment 01/06/2024 Annual physical exam (ICD-10 - Z00.00) labs reviewed and discussed with patient 02/28/2024 COVID-19 (ICD-10 - U07.1) was told to hold his atorvastin for one week, patient verbalized understannding of medication and directions for use 07/11/2024 Type 2 diabetes mellitus without complication (ICD-10 - E11.9) increase insulin to 25/ order faxed to [facility] dept, will continue current regiment 07/11/2024 S/P drug eluting coronary stent placement (ICD-10 - Z95.5) having no chest pain, will continue to monitor, followed by cardiology 08/18/2024 Purulent bronchitis (ICD-10 - J41.1) patient verbalized understanding of medication and directions for use 09/18/2024 Myalgia, multiple si hemalatha (ICD-10 - M79.18) will hold atorvastatin for 6 weeks 10/27/2024 Type 2 diabetes mellitus without complication (ICD-10 - E11.9) 10/27/2024 Bone pain (ICD-10 - M89.8X9) pending diagnostic testing/ order faxed to [facility] dept 11/06/2024 Type 2 diabetes mellitus without complication (ICD-10 - E11.9) 12/31/2023 Pure hypercholesterolemia (ICD-10 - E78.00) 07/04/2024 Elevated triglycerid es with high cholesterol (ICD-10 - E78.2) 01/06/2024 Prostate irregularit y (ICD-10 - N42.9) refer to urology 07/11/2024 Bilateral carotid artery stenosis (ICD-10 - I65.23) 12/31/2023 Essential hypertensi on (ICD-10 - I10) 01/06/2024 Skin lesion (ICD-10 - L98.9) refer to dermatology 07/11/2024 Pure hypercholesterolemia (ICD-10 - E78.00) stable, will contnue current regiment 12/31/2023 Type 2 diabetes, controlled, with neuropathy (ICD-10 - E11.40) 01/06/2024 Oral mucosal lesion (ICD-10 - K13.70) if it doesn't improve to return 07/11/2024 Essential hypertensi on (ICD-10 - I10) stable, will contiue current regiment 01/06/2024 Pure hypercholesterolemia (ICD-10 - E78.00) stable, will cntinue current regiment 01/06/2024 Essential hypertensi on (ICD-10 - I10) stable, will continue current regiment 01/06/2024 Schatzki's ring (ICD -10 - K22.2) stable, will continue current regiment 01/06/2024 Colon cancer screeni ng (ICD-10 - Z12.11) guaiac negative 01/06/2024 Depression screening (ICD-10 - Z13.31) negative screen Plan Of Treatment Pending Test Test Name Order Date Electrocardiogram (EKG) 10/24/2015 CT NECK WITH CONTRAST 09/16/2023 NUC WHOLE BODY SCAN BONE 10/27/2024 XR CHEST 2 VIEW PA & LAT 10/25/2023 US CAROTID BILATERAL DOPPLER 07/11/2024 US CAROTID BILATERAL DOPPLER 07/01/2023 Lipid Panel with Reflex 07/04/2024 US soft tiss head and/or neck 07/01/2023 Future Test Test Name Order Date US CAROTID BILATERAL DOPPLER 12/20/2020 Next Appt Details Provider Name:Mj vasquez, 01/04/2025 07:30:00 AM, [address] [place] [address], [address], [place], [place], [phone], Provider Name:Mj vasquez, 01/11/2025 08:30:00 AM, [address] [place] [address], [address], [place], [place], [phone], Insurance Providers Payer Name Payer Address Payer Phone Subscriber Number Group Number Insured Name Patient Relationship to Insured Coverage Start Date Coverage End Date [address] [place] [phone] [id number] Rodolfo Dunn Self - patient is the insured [employer] [address] [place] [address] [id number] Rodolfo Dunn Self - patient is the insured Medical (General) History Medical History History ICD Code Refuses flu shot1-8-13 colonoscopy 2003; colonoscop y 06/17/15 w/Dr. Yang - repeat 10 yrs depending on biopsy hyperplastic Hx of bloody stools
--- OUTSIDE RECORDS SUMMARY | 2024-11-29 12:13 | XMS_ITS ---
Author Organization Mj Bella MD Address [address] [place] [address] [phone] Care Team Providers Care Corporate Fitness Program Coordinator Name Role Phone Jena Mj Primary Care Provider REASON FOR VISIT RF Jardiance Medications Medication SIG (Take, Route, Fr equency, Duration) Notes Start Date End Date Status Jardiance 25 MG TAKE 1 TABLET BY FRANCHESKA TH EVERY DAY for 90 days Active Encounters Encounter Location Date Provider Diagnosis Mj Bella MD [address] [place] [address] [id number] 11/06/2024 Mj Bella Type 2 diabetes mellitus without complication E11.9 Assessments Encounter Date Diagnosis (ICD Code) Assessment Notes Treatment Notes Treatment Clinical Notes Section Notes 11/06/2024 Type 2 diabetes mellitus without complication (ICD-10 - E11.9) Plan Of Treatment Medication Medication Name Sig Start Date Stop Date Notes Jardiance 25 MG TAKE 1 TABLET BY FRANCHESKA TH EVERY DAY for 90 days Next Appt Details Provider Name:Mj Maharaj ier, 01/04/2025 07:30:00 AM, [address], [address], [place], [place], [phone], Provider Name:Mj Maharaj ier, 01/11/2025 08:30:00 AM, [address], [address], [place], [place], [phone], Progress Notes * Rodolfo WRIGHT PDOB:1950 (73 yo M)Acc No.[id number]:11/06/2024 Patient:?Rodolfo WRIGHT :1950???Age:73 Y???Sex:Male Address: [address], [place] [address] * Refills? Refill Jardiance Tablet, 25 MG, 90 Tablet, TAKE 1 TABLET BY MOUTH EVERY DAY, 90 days, Refills=3 * true * Date:? Generated for Lolis carlson/Ileana/eTransmitting on:?11/29/2024 12:12 PM EDT
== END ==
LOC: HO.NUCMED 10:26
PROVIDERS: PCP Internal Medicine; Visit Provider Internal Medicine
DX: E11.9 Type 2 diabetes mellitus without complications (principal)
CPT/HCPCS: 78306; A9503

== ENCOUNTER → 2024-11-29 10:30 | Outpatient (BNV) | payer OTHER, SELFPAY | PROVIDERS: PCP Internal Medicine; Visit Provider Radiology Diagnostic Radiology | DX: M54.9 Dorsalgia, unspecified (principal); E11.9 Type 2 diabetes mellitus without complications | CPT/HCPCS: 78306 ==

== ENCOUNTER 2025-01-04 11:30 | Outpatient (REF) | payer OTHER, SELFPAY ==
[2025-01-04 11:32] LABS: MANUAL DIFF FLAG NO
[2025-01-04 11:47] LABS: Appearance Urine Clear; Basophils Absolute Auto 0.1 X10*3/uL (0.0-0.2); Basophils Percent Auto 0.8 % (0-2); Color Urine Yellow; Eosinophils Absolute Auto 0.3 X10*3/uL (0.0-0.4); Eosinophils Percent Auto 3.6 % (0-4); Glucose Urine UA >=1000 mg/dL (Negative); Hematocrit 48.3 % (42.0-52.0); Imm Gran Abs Auto 0.03 X10*3/uL (0.00-0.03); Imm Gran Pct Auto 0.4 % (0.0-0.4); Leukocyte Esterase Urine Small (1+) (Negative); Lymphocytes Absolute Auto 2.5 X10*3/uL (1.2-4.9); Mean Corpuscular HGB Conc 33.1 g/dl (31.0-36.0); Mean Corpuscular Hemoglobin 29.9 pg (27.0-33.0); Mean Corpuscular Volume 90.3 fL (80.0-98.0); Mean Platelet Volume 11.1 fL (9.4-12.4); Monocytes Absolute Auto 1.1 X10*3/uL (0.1-1.2); Monocytes Percent Auto 13.5 % (2-11); Neutrophils Absolute Auto 3.9 x10*3/uL (2.0-8.3); Neutrophils Percent Auto 49.7 % (45-73); Nitrite Urine Negative (Negative); PH 5.5 (5.0-9.0); Platelet Count 210 X10*3/uL (160-400); Red Blood Count 5.35 X10*6/uL (4.60-5.80); Red Cell Distribution Width 13.2 % (11.0-16.0); Specific Gravity - Urine >= 1.030 (1.005-1.025); UMIC TRIGGER UACC YES; Urine Blood Negative (Negative); Urine Ketones Negative (Negative); Urine Protein Trace mg/dL (Neg-Trace); White Blood Count 7.8 X10*3/uL (4.8-10.8)
[2025-01-04 11:52] LABS: Bacteria Urine None Seen (None Seen); Hyaline Casts Urine 0-2 /LPF (0-2); RBC Urine 0-2 /HPF (0-2); Squamous Epithelial Cell Urine 0-2 /HPF (0-2); UACC Culture Trigger YES; WBC Urine 21-50 /HPF (0-5)
[2025-01-04 11:59] LABS: Estimated Average Glucose 214 mg/dL; Hemoglobin A1C 311.6804 umol/L; Hemoglobin A1c % 9.1 % (<6.0); Total Hemoglobin (HGBA1C) 4130.2731 umol/L
--- OUTSIDE RECORDS SUMMARY | 2025-01-04 12:08 | XMS_ITS ---
Author Organization Mj Bella MD Address [address] [place] [phone] Care Team Providers Care Machining Department Supervisor Name Role Phone Mj Bella Primary Care Provider [phone] Results Component Value Reference Range Notes Complete Blood Count Auto Di ff (Not yet reviewed by provider) Interpretation: Performing Lab:[facility], [address] [place] [id number] Notes/Report: White Blood Count 7.8 4.8-10.8 X10*3/uL Red Blood Count 5.35 4.60-5.80 X10*6/uL Hemoglobin 16.0 14.0-18.0 g/dl Hematocrit 48.3 42.0-52.0 % Mean Corpuscular Volume 90.3 80.0-98.0 fL Mean Corpuscular Hemoglobin 29.9 27.0-33.0 pg Mean Corpuscular HGB Conc 33.1 31.0-36.0 g/dl Red Cell Distribution Width 13.2 11.0-16.0 % Platelet Count 210 160-400 X10*3/uL Mean Platelet Volume 11.1 9.4-12.4 fL Neutrophils Percent Auto 49.7 45-73 % Imm Gran Pct Auto 0.4 0.0-0.4 % Lymphocytes Percent Auto 32.0 20-40 % Monocytes Percent Auto 13.5 2-11 % Eosinophils Percent Auto 3.6 0-4 % Basophils Percent Auto 0.8 0-2 % NRBC Pct Auto 0.0 0.0-0.2 /100WBC Neutrophils Absolute Auto 3.9 2.0-8.3 x10*3/u L Imm Gran Abs Auto 0.03 0.00-0.03 X10*3/uL Lymphocytes Absolute Auto 2.5 1.2-4.9 X10*3/u L Monocytes Absolute Auto 1.1 0.1-1.2 X10*3/uL Eosinophils Absolute Auto 0.3 0.0-0.4 X10*3/u L Basophils Absolute Auto 0.1 0.0-0.2 X10*3/uL NRBC Abs Auto 0.000 0.0-0.012 X10*3/uL Hemoglobin A1c (Not yet revi ewed by provider) Interpretation: Performing Lab:[address] [id number] Notes/Report: Hemoglobin A1c % 9.1 <6.0 % Hemoglobin A1C Reference Range Adults: 4.8 - 6.0 % Non diabetic: < 6.0 % Goal: < 7.0 % Additional Action Suggested: > 8.0 % Note: Hemoglobin A1c results are invalid for patients with abnormal amounts of HbF. Blood transfusions may impact the HbA1c concentration in the patient sample. Estimated Average Glucose 214 eAG = Estimated average glucose which is %A1C expressed as average glucose, using the formula of the G4S-Adzzsks Average Glucose study (ADAG), Diabetes Care, Vol.31,#8, Mar. 2007 UA ClnCatch+Micro w/rflx Cul t (Not yet reviewed by provider) Interpretation: Performing Lab:[address] [id number] Notes/Report: Urine, Clean Catch Color Urine Yellow Appearance Urine Clear PH 5.5 5.0-9.0 Glucose Urine UA >=1000 Negative mg/dL Urine Blood Negative Negative Specific [place] - Urine >= 1.030 1.005-1.025 Urine Protein Trace Neg-Trace mg/dL Urine Ketones Negative Negative mg/dL Nitrite Urine Negative Negative Leukocyte Esterase Urine Small (1+) Negative RBC Urine 0-2 0-2 /HPF WBC Urine 21-50 0-5 /HPF Squamous Epithelial Cell Urine 0-2 0-2 /HPF Bacteria Urine None Seen None Seen Hyaline Casts Urine 0-2 0-2 /LPF REASON FOR VISIT yearly fasting labs Encounters Encounter Location Date Provider Diagnosis Mj Bella MD [address] [place], [place] [phone] 01/04/2025 Mj Bella Blood tests for routine general physical examination Z00.00 ; Elevated triglycerides with high cholesterol E78.2 ; Type 2 diabetes mellitus without complication E11.9 and Essential hypertension I10 Assessments Encounter Date Diagnosis (ICD Code) Assessment Notes Treatment Notes Treatment Clinical Notes Section Notes 01/04/2025 Blood tests for routine general physical examination (ICD-10 - Z00.00) 01/04/2025 Elevated triglycerides with high cholesterol (ICD-10 - E78.2) 01/04/2025 Type 2 diabetes mellitus without complication (ICD-10 - E11.9) 01/04/2025 Essential hypertension (ICD-10 - I10) Plan Of Treatment Pending Test Test Name Order Date Complete Blood Count Auto Diff Comprehensive Dana. Panel Fast 5 Lipid Panel 01/04/2025 PSA,Total (Free>4and<10) 01/04/2025 Microalbumin, Random 01/04/2025 Hemoglobin A1c 01/04/2025 UA ClnCatch+Micro w/rflx Cult 01/04/2025 Next Appt Details Provider Name:Mj Maharaj ier, 01/11/2025 08:30:00 AM, [address], [address], [place], [place], [phone], Progress Notes * Rodolfo WRIGHT PDOB:1950 (74 yo M)Acc No.[id number]:01/04/2025 Progress Note Patient:?Rodolfo WRIGHT Provider:?Mj Bella MD :1950???Age:74 Y???Sex:Male Shaan e:01/04/2025 Address: [address], [facility], [id number] Subjective: * Chief Complaints: * ???1. Yearly fasting labs. * Medical History:? Objective: * Vitals:? Assessment: * Assessment: 1.?Blood tests for routine g eneral physical examination - Z00.00 (Primary)???2.?Elevated triglycerides with high cholesterol - E78.2???3.?Type 2 diabetes mellitus without complication - E11.9???4.?Essential hypertension - I10??? Plan: * Treatment: 2.?Elevated triglycerides wi th high cholesterol?LAB: Complete Blood Count Auto Diff (Collection Date & Time - 01/04/2025 07:30 AM) ?LAB: Comprehensive Dana. Panel Fast ?LAB: Lipid Panel ?LAB: PSA,Total (Free>4and<10) ?LAB: Microalbumin, Random ?LAB: Hemoglobin A1c (Collection Date & Time - 01/04/2025 07:30 AM) ?LAB: UA ClnCatch+Micro w/rflx Cult (Collection Date & Time - 01/04/2025 07:30 AM) 3.?Type 2 diabetes mellitus without complication?LAB: Complete Blood Count Auto Diff (Collection Date & Time - 01/04/2025 07:30 AM) ?LAB: Comprehensive Dana. Panel Fast ?LAB: Lipid Panel ?LAB: PSA,Total (Free>4and<10) ?LAB: Microalbumin, Random ?LAB: Hemoglobin A1c (Collection Date & Time - 01/04/2025 07:30 AM) ?LAB: UA ClnCatch+Micro w/rflx Cult (Collection Date & Time - 01/04/2025 07:30 AM) 4.?Essential hypertension?LAB: Complete Blood Count Auto Diff (Collection Date & Time - 01/04/2025 07:30 AM) ?LAB: Comprehensive Dana. Panel Fast ?LAB: Lipid Panel ?LAB: PSA,Total (Free>4and<10) ?LAB: Microalbumin, Random ?LAB: Hemoglobin A1c (Collection Date & Time - 01/04/2025 07:30 AM) ?LAB: UA ClnCatch+Micro w/rflx Cult (Collection Date & Time - 01/04/2025 07:30 AM) * Procedure Codes:?58172 VENIP UNCT, ROUTINE* * * The named appointment provid er may or may not be the originator of this progress note, and it is not deemed complete until electronically signed by the appointment provider. Sign off status: Pending * Provider:?Mj Blela MD Date:?0 01/04/2025 Generated for Lolis carlson/Ileana/Aiitting on:?01/04/2025 12:07 PM EDT
--- OUTSIDE RECORDS SUMMARY | 2025-01-04 12:08 | XMS_ITS ---
Author Organization Mj Bella MD Address [address] [place] [phone] Care Team Providers Care Park Guide Name Role Phone Mj Bella Primary Care Provider REASON FOR VISIT refill Medications Medication SIG (Take, Route, Frequency, Duration) Notes Start Date End Date Status Zetia 10 MG 1 tablet Orally Once a day for 90 days Active Encounters Encounter Location Date Provider Diagnosis Mj Bella MD [address] [place] [phone] 12/19/2024 Mj Bella Pure hypercholestero lemia E78.00 Assessments Encounter Date Diagnosis (ICD Code) Assessment Notes Treatment Notes Treatment Clinical Notes Section Notes 12/19/2024 Pure hypercholesterolemia (ICD-10 - E78.00) Plan Of Treatment Medication Medication Name Sig Start Date Stop Date Notes Zetia 10 MG 1 tablet Orally Once a day for 90 days Next Appt Details Provider Name:Mj vasquez, 01/11/2025 08:30:00 AM, [address] [place] [address], [address], [place], [place], [phone], Progress Notes * Rodolfo WRIGHT PDOB:1950 (73 yo M)Acc No.[id number]:12/19/2024 Patient:?KYLE Rodolfo Lance :1950???Age:73 Y???Sex:Male Address: [address], [place] [address] * Refills? Refill Zetia Tablet, 10 MG, Orally, 90, 1 tablet, Once a day, 90 days, Refills=3 * true * Date:? Generated for Lolis carlson/Ileana/Андрейsmitting on:?01/04/2025 12:08 PM EDT
--- OUTSIDE RECORDS SUMMARY | 2025-01-04 12:08 | XMS_ITS | Patient Health Record ---
Author Organization Mj Bella MD Address [address] [place], [place] [id number] Care Team Providers Care Rod Tape Operator Name Role Phone Mj Bella Primary Care Provider [phone] Allergies Allergen (clinical drug ingredient) Drug/Non Drug Allergy documented on EMR Reaction Allergy Type Onset Date Status metformin Metformin HCl diarrhea Drug Allergy Act rohan Results Component Value Reference Range Notes Hemoglobin A1c Reviewed date:10/27/2024 01:24:48 PM Interpretation: Performing Lab: Notes/Report: Hemoglobin A1c 8.2 Liver Panel Reviewed date:07/04/2024 08:08:32 PM Interpretation: Performing Lab:[facility], [address] [place] [phone] Notes/Report: Bilirubin Total 0.6 0.0-1.0 mg/dL Bilirubin Direct 0.2 0.0-0.5 mg/dL Aspartate Amino Transferase 25 5-37 U/L Alanine Aminotransferase 20 0-40 U/L Total Protein 6.9 6.5-8.0 g/dL Albumin Level 3.8 3.5-5.0 g/dL Alkaline Phosphatase 103 39-117 U/L Glucose Fasting Reviewed date:07/04/2024 08:06:38 PM Interpretation: Performing Lab:[facility], [address] [place] [phone] Notes/Report: Glucose Fasting 182 60-99 mg/dL A fasting glucose of 126 mg/dl or greater on more than one occasion is considered diagnostic of diabetes. Hemoglobin A1c Reviewed date:07/04/2024 08:06:14 PM Interpretation: Performing Lab:[facility], [address] [place] [phone] Notes/Report: Hemoglobin A1c % 9.3 <6.0 % [...] average glucose, using the formula of the T8J-Zppvbws Average Glucose study (ADAG), Diabetes Care, Vol.31,#8, 2007 Complete Blood Count Auto Di ff (Not yet reviewed by provider) Interpretation: Performing Lab:[facility], [address] [place] [phone] Notes/Report: White Blood Count 7.8 4.8-10.8 X10*3/uL [...] 0.0-0.2 /100WBC Neutrophils Absolute Auto 3.9 2.0-8.3 x10*3/uL Imm Gran Abs Auto 0.03 0.00-0.03 X10*3/uL Lymphocytes Absolute Auto 2.5 1.2-4.9 X10*3/uL Monocytes Absolute Auto 1.1 0.1-1.2 X10*3/uL Eosinophils Absolute Auto 0.3 0.0-0.4 X10*3/uL Basophils Absolute Auto 0.1 0.0-0.2 X10*3/uL NRBC Abs Auto 0.000 0.0-0.012 X10*3/uL Hemoglobin A1c (Not yet revi ewed by provider) Interpretation: Performing Lab:[address] [phone] Notes/Report: Hemoglobin A1c % 9.1 <6.0 % [...] average glucose, using the formula of the V7F-Zupbjwn Average Glucose study (ADAG), Diabetes Care, Vol.31,#8, Mar. 2007 UA ClnCatch+Micro w/rflx Cul t (Not yet reviewed by provider) Interpretation: Performing Lab:[address] [phone] Notes/Report: Urine, Clean Catch Color Urine Yellow Appearance Urine Clear PH 5.5 5.0-9.0 Glucose Urine UA >=1000 Negative mg/dL Urine Blood Negative Negative Specific Steele - Urine >= 1.030 1.005-1.025 Urine Protein Trace Neg-Trace mg/dL Urine Ketones Negative Negative mg/dL Nitrite Urine Negative Negative Leukocyte Esterase Urine Small (1+) Negative RBC Urine 0-2 0-2 /HPF WBC Urine 21-50 0-5 /HPF Squamous Epithelial Cell Urine 0-2 0-2 /HPF Bacteria Urine None Seen None Seen Hyaline Casts Urine 0-2 0-2 /LPF Occult Blood, Stool, Guaiac Reviewed date:01/06/2024 11:48:46 AM Interpretation:Negative Performing Lab: Notes/Report: Negative Occult Blood, Stool, Guaiac Neg Glucose, finger stick Reviewed date:10/27/2024 01:11:39 PM Interpretation: Performing Lab: Notes/Report: Value 254 US retroperitoneal comp Reviewed date:07/29/2024 02:44:09 PM Interpretation: Performing Lab: Notes/Report: [address] [address] Ultrasound Report Signed Patient: Rodolfo Dunn MR#: [id number] 0 : 1950 Acct:[id number] Age/Sex: 73 / M ADM Date: 05/30/24 Loc: HO.US Attending Dr: Wendy Burnett MD Ordering Physician: Wendy Burnett MD Date of Service: 05/30/24 Procedure(s): US retroperitoneal comp Accession Number(s): [id number] cc: Wendy Burnett MD; Mj Bella MD [...] 07/29/24 1019 DD/ 1000 TD/TT: 05/30/24 1030 Assembly Machine Offbearer: [place] [address] Ultrasound Report Signed Patient: Rodolfo Dunn MR#: [id number] 0 : 1950 Acct:[id number] Age/Sex: 73 / M ADM Date: 05/30/24 Loc: HO.US Attending Dr: Wendy Burnett MD Ordering Physician: Wendy Burnett MD Date of Service: 05/30/24 Procedure(s): US retroperitoneal comp Accession Number(s): [id number] cc: Shawn Burnett MD; Mj Bella MD [...] 07/29/24 1019 DD/ 1000 TD/TT: 05/30/24 1030 Assembly Machine Offbearer: DEANDRA Lipid Panel Reviewed date:07/04/2024 08:08:23 PM Interpretation: Performing Lab:[facility], [address] [place] [phone] Notes/Report: Triglycerides 298 <150 mg/dL Desirable Triglyceride: [...] Ibarra Reviewed date:07/04/2024 08:06:02 PM Interpretation: Performing Lab:[facility], [address] [place] [phone] Notes/Report: Verito Ibarra See Note Specimen held untested for 24 hours; Call to request Chemistry testing. US carotid duplex BI Reviewed date:09/14/2024 10:04:12 AM Interpretation: Performing Lab: Notes/Report: [address] [address] Ultrasound Report Signed Patient: Rodolfo Dunn MR#: [id number] 0 : 1950 Acct:[id number] Age/Sex: 73 / M ADM Date: 09/13/24 Loc: .US Attending Dr: Mj Bella MD Ordering Physician: Mj Bella MD Date of Service: 09/13/24 Procedure(s): US carotid duplex BI Accession Number(s): [id number] cc: Mj Bella MD EXAMINATION: US EXTRACRANIAL [...] 09/13/24 1133 DD/ 1020 TD/TT: 09/13/24 1049 Assembly Machine Offbearer: [address] [address] Ultrasound Report Signed Patient: Rodolfo Dunn MR#: [id number] 0 : 1950 Acct:[id number] Age/Sex: 73 / M ADM Date: 09/13/24 Loc: HO.US Attending Dr: Mj Bella MD Ordering Physician: Mj Bella MD Date of Service: 09/13/24 Procedure(s): US carotid duplex BI Accession Number(s): [id number] cc: Mj Bella MD EXAMINATION: US EXTRACRANIAL [...] 09/13/2024 11:33 AM EST Dictated By: Miguel Carpenter MD Signed By: <Electronically signed by Miguel Loyd MD in OV> 09/13/24 1133 DD/ 1020 TD/TT: 09/13/24 1049 Assembly Machine Offbearer: NM bone scan whole body Reviewed date:11/30/2024 08:34:37 AM Interpretation: Performing Lab: Notes/Report: [place] [address] Nuclear Medicine Report Signed Patient: Rodolfo Dunn MR#: [id number] 0 : 1950 Acct:[id number] Age/Sex: 73 / M ADM Date: 11/29/24 Loc: NIKUNJ Attending Dr: Mj Bella MD Ordering Physician: Mj Bella MD Date of Service: 11/29/24 Procedure(s): NM bone scan whole body Accession Number(s): [id number] cc: Mj Bella MD EXAMINATION: NM BONE SCAN WHOLE BODY HISTORY: E11.9 DIABETES TYPE II WITHOUT COMPLICATION BACK AND SIDE PAIN. TECHNIQUE: A total body bone scan was performed following the intravenous administration of 34 mCi technetium 99m-MDP. Delayed whole body planar images were obtained. COMPARISON: There are no prior studies for comparison. FINDINGS: There is a small focus of increased uptake involving the left 7th costovertebral junction, which may be degenerative or posttraumatic in nature. There is mild increased uptake involving the AC joints of both shoulders, likely degenerative in nature. The remainder of the visualized osseous structures demonstrate a normal distribution of activity. There is normal bilateral renal uptake. NM/NM bone scan whole body IMPRESSION: Minimal increased uptake involving the left 7th costovertebral junction and the bilateral AC joints, likely degenerative in nature. Otherwise unremarkable whole body bone scan. Electronically signed by: Hang Bundy MD 11/29/2024 03:05 PM EDT RP Dictated By: Hang Bundy MD Signed By: <Electronically signed by Hang Bundy MD in OV> 11/29/24 1505 DD/ 1030 TD/TT: 11/29/24 1415 Assembly Machine Offbearer: [place] [address] Nuclear Medicine Report Signed Patient: Rodolfo Dunn MR#: [id number] 0 : 1950 Acct:[id number] Age/Sex: 73 / M ADM Date: 11/29/24 Loc: NIKUNJ Attending Dr: Mj Bella MD Ordering Physician: Mj Bella MD Date of Service: 11/29/24 Procedure(s): NM bon e scan whole body Accession Number(s): [id number] cc: Mj Bella MD EXAMINATION: NM BONE SCAN WHOLE BODY HISTORY: E11.9 DIABE JAKE TYPE II WITHOUT COMPLICATION BACK AND SIDE PAIN. TECHNIQUE: A total b mehran bone scan was performed following the intravenous administration of 34 mCi technetium 99m-MDP. Delayed whole body planar images w ere obtained. COMPARISON: There ar e no prior studies for comparison. FINDINGS: There is a small foc us of increased uptake involving the left 7th costovertebral junction, which may be degenerative or posttraumatic in nature. There is mil d increased uptake involving the AC joints of both shoulders, likely degenerative in nature. The remainder of the visualized osseous structures demonstrate a normal distribution of activity. There is normal bilateral renal uptake. ___ __ NM/NM bone scan whole body IMPRESSION: Minimal increased uptake involving the left 7th costovertebral junction and the bilateral AC joints, likely degenerative in nature. Otherwise unremarkable whole b mehran bone scan. Electronically clint d by: Hang Bundy MD 11/29/2024 03:05 PM EDT RP Dictated By: Hang Bundy MD Signed By: <Electronically signed by Hang Bundy MD in OV> 11/29/24 1505 DD/ 1030 TD/TT: 11/29/24 1415 Assembly Machine Offbearer: Reason For Referral Reason prostt irregularity Diagnosis 1 Prostate irregularit y (N42.9) Referral Organization Mj Bella MD Referring Provider First Name Mj Referring Provider Last Name Jena Referring Provider Speciality Internal edicine Referred Provider Good Steven Referred Provider Specialty Urology General Notes Letty Dey 01:25:11 PM EDT > info faxed [phone] Annette 01/20/2024 02:49:33 PM EDT > was [...] Referring Provider Speciality Internal edicine Referred Provider [place] ram[place] Referred Provider Specialty Dermatology General Notes Letty [...] Once a day for 90 days Active Clopidogrel Bisulfate 75 MG 1 tablet Orally Once a day for 30 day(s) Active Nystatin 554617 UNIT/GM APPLY TOPICALLY TO THE AFFECTED AREA TWICE DAILY for 30 Active FreeStyle Lancets - USE 1 LANCET TO TEST BLOOD SUGAR TWICE A DAY for 50 Active Betamethasone Dipropionate Aug 0.05 % 1 application Externally Once a day for 14 days 09/11/2022 Active Zithromax Z-Carlos Manuel 250 MG 2 tablet on the irst day, then 1 tablet daily for 4 days Orally Once a day for 5 day(s) 12/08/2024 Active Aspirin 81 MG 1 tablet Orally Once a day Active Jardiance 25 MG TAKE 1 TABLET BY [facility] EVERY DAY for 90 days Active BD Pen Needle Mini U/F 31G X 5 MM USE 1 PEN TO INJECT MEDICATION DIRECTED for 90 Active Atorvastatin Calcium 40 MG TAKE 1 TABLET BY MOUTH EVERY DAY for 120 Active Pen [place] 3/16 31G X 5 MM as directed for 90 days 09/19/2019 Acti ve Dexcom G6 Sensor - as directed change every 10 days for 90 days 10/23/2022 Not-Taking Omeprazole 20 MG TAKE 1 CAPSULE BY [facility] EVERY DAY 30 MINUTES BEFORE BREAKFAST for 30 Active Dexcom G6 Transmitter - as directed huber ge every 90 days 10/23/2022 Not-Taking Metoprolol Succinate ER 100 MG TAKE 1 TABLET BY MOUTH EVERY DAY for 90 Active Dexcom G6 Manufacturing Maintenance Mechanic - as directed 11/02/2022 Not-Taking Pantoprazole Sodium 40 MG 1 tablet Orall y Once a day for 90 days 03/20/2024 Not-Taking Lisinopril 5 MG TAKE 1 TABLET BY [facility] EVERY DAY Active Farxiga 10 mg 1 tablet Orally Once a day for 30 days 10/29/2023 Not-Taking amLODIPine Besylate 5 MG TAKE 1 TABLET B Y MOUTH EVERY DAY Active Ibuprofen 800 MG 1 tablet with food o r milk as needed Orally every 8 hrs Not-Taking sAXagliptin HCl 5 MG TAKE 1 TABLET BY [facility] EVERY DAY Once a day for 90 days Active Indomethacin 50 MG 1 capsule with food or milk Orally Three times a day for 10 days 01/19/2022 Not-Taking Lantus SoloStar 100 UNIT/ML 25 units Active Immunizations Vaccine Route Administration Date Status Comme [...] Problem Status W/U Status Risk Notes Problem 59373591 Essential hypert ension (I10) Active confirmed Problem 79791238 Type 2 diabetes mellitus without complication (E11.9) Active confirmed Problem 083829073 Low HDL (under 4 0) (E78.6) Active confirmed Problem 37700850 Type 2 diabetes, controlled, with neuropathy (E11.40) Active confirmed Problem 614404351 Elevated triglyc erides with high cholesterol (E78.2) Active confirmed Problem 920322983 Hypoglycemia (E16.2) Active confirmed Problem 489132957 Schatzki's ring (K22.2) Active confirmed Problem 341802732 S/P drug eluting coronary stent placement (Z95.5) Active confirmed Problem 183562643 History of anter ior wall myocardial infarction (I25.2) Active confirmed Problem 126127840 Pure hypercholesterolemia (E78.00) Active confirmed Problem 70762597 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) Active confirmed Problem 961462939 Elevated PSA (R97.20) Active confirme d Problem 965196271 Coronary artery disease of [place] artery of [place] heart with stable angina pectoris (I25.118) Active confirmed Problem 72679840 WM (obstructive sleep apnea) (G47.33) Active confirmed Problem 048823333 BMI 31.0-31.9,ad ult (Z68.31) Active confirmed Problem Gout (16471898) Acute gout invol ving toe of left foot, unspecified cause (M10.9) Active confirmed Problem Sialoadenitis (71178016) Parotiditis (K11.20) Active confirmed Problem 32297234 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 Vital Signs Blood pressure diastolic 80 mm Hg 10/27/2024 ish ght is up 5 pounds since 09-18-24 Height 68 in 12/08/2024 weight is 216 a t home BP not taken today no temp Blood pressure systolic 144 mm Hg 10/27/2024 weig ht is up 5 pounds since 09-18-24 Weight 225 lbs 10/27/2024 weight is up 5 pounds since 09-18-24 BMI 34.21 kg/m2 10/27/2024 weight is up 5 pounds since 09-18-24 Encounters Encounter Location Date Provider Diagnosis Mj Bella MD [address] [place], [place] [id number] 07/04/2024 Mj Bella Type 2 diabetes sundeep itus without complication E11.9 ; Encounter for immunization Z23 and Elevated triglycerides with high cholesterol E78.2 Mj Bella MD [address] [place], [place] [id number] 01/04/2025 Mj Bella Blood tests for rout ine general physical examination Z00.00 ; Elevated triglycerides with high cholesterol E78.2 ; Type 2 diabetes mellitus without complication E11.9 and Essential hypertension I10 Mj Bella MD [address] [place] [id number] 01/06/2024 Mj Bella Type 2 diabetes sundeep itus without complication E11.9 ; Annual physical exam Z00.00 ; Prostate irregularity N42.9 ; Skin lesion L98.9 ; Oral mucosal lesion K13.70 ; Pure hypercholesterolemia E78.00 ; Essential hypertension I10 ; Schatzki's ring K22.2 ; Colon cancer screening Z12.11 and Depression screening Z13.31 Mj Bella MD [address] [place] [id number] 02/28/2024 Mj Bella COVID-19 U07.1 Mj Bella MD [address] [place] [id number] 07/11/2024 Mj Bella Type 2 diabetes sundeep itus without complication E11.9 ; S/P drug eluting coronary stent placement Z95.5 ; Bilateral carotid artery stenosis I65.23 ; Pure hypercholesterolemia E78.00 and Essential hypertension I10 Mj Bella MD [address] [place] [id number] 08/18/2024 Mj Bella Purulent bronchitis J41.1 jM Bella MD [address] [place] [id number] 09/18/2024 Mj Bella Myalgia, multiple si jake M79.18 Mj Bella MD [address] [place] [id number] 10/27/2024 Mj Bella Type 2 diabetes sundeep itus without complication E11.9 and Bone pain M89.8X9 Mj Bella MD [address] [place] [id number] 12/08/2024 Mj Bella Bronchitis J40 Mj Bella MD [address] [place] [id number] 03/20/2024 Mj Bella MD [address] [place] [id number] 07/25/2024 Mj Bella MD [address] [place] [id number] 07/31/2024 Mj Bella MD [address] [place] [id number] 11/06/2024 Mj Bella Type 2 diabetes sundeep itus without complication E11.9 Mj Bella MD [address] [place] [id number] 12/19/2024 Mj Bella Pure hypercholestero lemia E78.00 Assessments Encounter Date Diagnosis (ICD Code) Assessment Notes Treatment Notes Treatment Clinical Notes Section Notes 07/04/2024 Type 2 diabetes mellitus without complication (ICD-10 - E11.9) 07/04/2024 Encounter for immunization (ICD-10 - Z23) 01/04/20[address] tests [address] ine general physical examination (ICD-10 - Z00.00) 01/06/2024 Type 2 diabetes mellitus without complication [...] increase insulin to 25/ order faxed to [facility] [place], will continue current regiment 07/11/2024 S/P drug eluting coronary stent placement (ICD-10 - Z95.5) having no chest pain, will continue to monitor, followed by cardiology 08/18/2024 Purulent bronchitis (ICD-10 - J41.1) patient verbalized understanding of medication and directions for use 09/18/2024 Myalgia, multiple si jake (ICD-10 - M79.18) will hold atorvastatin for 6 weeks 10/27/2024 Type 2 diabetes mellitus without complication (ICD-10 - E11.9) 10/27/2024 Bone pain (ICD-10 - M89.8X9) pending diagnostic testing/ order faxed to [facility] [place] 12/08/2024 Bronchitis (ICD-10 - J40) patient verbalized understanding of medication and directions for use 11/06/2024 Type 2 diabetes mellitus without complication (ICD-10 - E11.9) 12/19/2024 Pure hypercholesterolemia (ICD-10 - E78.00) 07/04/2024 Elevated triglycerid es with high cholesterol (ICD-10 - E78.2) 01/04/2025 Elevated triglycerid es with high cholesterol (ICD-10 - E78.2) 01/06/2024 Prostate irregularit y (ICD-10 - N42.9) refer to urology 07/11/2024 Bilateral carotid artery stenosis (ICD-10 - I65.23) 01/04/2025 Type 2 diabetes mellitus without complication (ICD-10 - E11.9) 01/06/2024 Skin lesion (ICD-10 - L98.9) refer to dermatology 07/11/2024 Pure hypercholesterolemia (ICD-10 - E78.00) stable, will contnue current regiment 01/04/2025 Essential hypertensi on (ICD-10 - I10) 01/06/2024 Oral mucosal lesion (ICD-10 - K13.70) [...] & LAT 10/25/2023 US CAROTID BILATERAL DOPPLER 07/01/2023 US CAROTID BILATERAL DOPPLER 07/11/2024 Complete Blood Count Auto Diff 5 Comprehensive [place]. Panel Fast 5 Lipid Panel 01/04/2025 PSA,Total (Free>4and<10) 01/04/2025 Microalbumin, Random 01/04/2025 US soft tiss head and/or neck 07/01/2023 Hemoglobin A1c 01/04/2025 UA ClnCatch+Micro w/rflx Cult 01/04/2025 Future Test Test Name Order Date US CAROTID BILATERAL DOPPLER 12/20/2020 Next Appt Details Provider Name:Mj Maharaj ier, 01/11/2025 08:30:00 AM, [address] [place] [address], [address], [place], [place], [id number], Insurance Providers Payer Name Payer Address Payer Phone Subscriber Number Group Number Insured Name Patient Relationship to Insured Coverage Start Date Coverage End Date [address] [place] [phone] [id number] Rodolfo Dunn Self - patient is the insured MEDICARE NHIC [address] [place] [address] [id number] Rodolfo Dunn Self - patient is the insured Medical (General) History Medical History History ICD Code Refuses flu shot1-8-13 colonoscopy 2003; colonoscop y 06/17/15 w/Dr. Yang - repeat 10 yrs depending on biopsy hyperplastic Hx of bloody stools
--- OUTSIDE RECORDS SUMMARY | 2025-01-04 12:08 | XMS_ITS ---
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 Name Role Phone Mj Bella Primary Care Provider Allergies Allergen (clinical drug ingredient) Drug/Non Drug Allergy documented on EMR Reaction Allergy Type Onset Date Status metformin Metformin HCl diarrhea Drug Allergy Act rohan REASON FOR VISIT chest cold, coughing, x 1week neg for covid phone [phone] Medications Medication SIG (Take, Route, Frequency, Duration) Notes Start Date End Date Status FreeStyle Lancets - USE 1 LANCET TO TEST BLOOD SUGAR TWICE A DAY for 50 Active Zithromax Z-Carlos Manuel 250 MG 2 tablet on the irst day, then 1 tablet daily for 4 days Orally Once a day for 5 day(s) 12/08/2024 Active Ibuprofen 800 MG 1 tablet with food o r milk as needed Orally every 8 hrs Not-Taking Indomethacin 50 MG 1 capsule with food or milk Orally Three times a day for 10 days 01/19/2022 Not-Taking Clopidogrel Bisulfate 75 MG 1 tablet Orally Once a day for 30 day(s) Active Dexcom G6 Sensor - as directed change every 10 days for 90 days 10/23/2022 Not-Taking Dexcom G6 Transmitter - as directed huber ge every 90 days 10/23/2022 Not-Taking Dexcom G6 Patternmaker All Around - as directed 11/02/2022 Not-Taking Pantoprazole Sodium 40 MG 1 tablet Orall y Once a day for 90 days 03/20/2024 Not-Taking Farxiga 10 mg 1 tablet Orally Once a day for 30 days 10/29/2023 Not-Taking Jardiance 25 MG TAKE 1 TABLET BY [place] EVERY DAY for 90 days Active Atorvastatin Calcium 40 MG TAKE 1 TABLET BY MOUTH EVERY DAY for 120 Active sAXagliptin HCl 5 MG TAKE 1 TABLET BY [facility] EVERY DAY Once a day for 90 days Active Nystatin 427296 UNIT/GM APPLY TOPICALLY TO THE AFFECTED AREA TWICE DAILY for 30 Active Lantus SoloStar 100 UNIT/ML 25 units Active Omeprazole 20 MG TAKE 1 CAPSULE BY [facility] EVERY DAY 30 MINUTES BEFORE BREAKFAST for 30 Active Metoprolol Succinate ER 100 MG TAKE 1 TABLET BY MOUTH EVERY DAY for 90 Active Zetia 10 MG 1 tablet Orally Once a day Active Lisinopril 5 MG TAKE 1 TABLET BY [place] EVERY DAY Active amLODIPine Besylate 5 MG TAKE 1 TABLET B Y MOUTH EVERY DAY Active Betamethasone Dipropionate Aug 0.05 % 1 application Externally Once a day for 14 days 09/11/2022 Active Aspirin 81 MG 1 tablet Orally Once a day Active BD Pen Needle Mini U/F 31G X 5 MM USE 1 PEN TO INJECT MEDICATION DIRECTED for 90 Active Pen [place] 3/16 31G X 5 MM as directed for 90 days 09/19/2019 Acti ve Vital Signs Height 68 in 12/08/2024 weight is 216 at home BP not taken today no temp Encounters Encounter Location Date Provider Diagnosis Mj Bella MD [address] [place] [address] [place] [phone] 12/08/2024 Mj Bella Bronchitis J40 Assessments Encounter Date Diagnosis (ICD Code) Assessment Notes Treatment Notes Treatment Clinical Notes Section Notes 12/08/2024 Bronchitis (ICD-10 - J40) patient verbalized understanding of medication and directions for use Plan Of Treatment Medication Medication Name Sig Start Date Stop Date Notes Zithromax Z-Carlos Manuel 250 MG 2 tablet on the f irst day, then 1 tablet daily for 4 days Orally Once a day for 5 day(s) 12/08/2024 Treatment Notes Assessment Notes Bronchitis patient verbalized u nderstanding of medication and directions for use Next Appt Details Provider Name:Mj Maharaj ier, 01/11/2025 08:30:00 AM, [address] [place] [address], [facility], [place], [place], [phone], Progress Notes * Rodolfo WRIGHT PDOB:1950 (73 yo M)Acc No.[id number]:12/08/2024 Patient:?Rodolfo WRIGHT Provider:?Mj Bella MD :1950???Age:73 Y???Sex:Male Shaan e:12/08/2024 Address:[address] [place], [place] [address], [id number] Subjective: * Chief Complaints: * ???Chest cold, coughing, x 1 week neg for covid phone [phone] * HPI: ???Symptom(s):?Telehealth?Location of provider rendering services:?[address] [place] [address], [address],?Location of patient:?at address listed in demographics for today's visit,?Patient identification confirmed using:?Name, ,?Telehealth method:?Video conference where patient is visible to the provider of care,?Consent:?Patient verbally consented to treatment, Patient verbally consented to billing insurance company, Patient informed of any privacy concerns related to method of visit,?Total time spend talking with patient (minutes)?18.? * ROS:?General/Constitutional:?Denies?Chills.?Denies?Fatigue.?Denies?Fever.?Denies?Headache.?ENT:?Denies?Sore throat.?Respiratory:?Admits?Cough.?Denies?Shortness of breath at rest.?Denies?Shortness of breath with exertion.?Denies?Sputum production.?Gastrointestinal:?Denies?Diarrhea.?Denies?Nausea.? * Medical History:? * Surgical History:? * [...] 1 PEN TO INJECT MEDICATION DIRECTED Pen [place] 3/16 31G X 5 MM Miscellaneous as directed Omeprazole 20 MG Capsule Delayed Release TAKE 1 CAPSULE BY MOUTH EVERY DAY 30 MINUTES BEFORE BREAKFAST Metoprolol Succinate ER 100 MG Tablet Extended Release 24 Hour TAKE 1 TABLET BY MOUTH EVERY DAY Zetia 10 MG Tablet 1 tablet Orally Once a day Lisinopril 5 MG Tablet TAKE 1 TABLET BY MOUTH EVERY DAY amLODIPine Besylate 5 MG Tablet TAKE 1 TABLET BY MOUTH EVERY DAY sAXagliptin HCl 5 MG Tablet TAKE 1 TABLET BY MOUTH EVERY DAY Once a day Nystatin 015868 UNIT/GM Cream APPLY TOPICALLY TO THE AFFECTED AREA TWICE DAILY Lantus SoloStar 100 UNIT/ML Solution Pen-injector 25 units Jardiance 25 MG Tablet TAKE 1 TABLET BY MOUTH EVERY DAY Atorvastatin Calcium 40 MG Tablet TAKE 1 TABLET BY MOUTH EVERY DAY Taking Clopidogrel Bisulfate 75 MG Tablet 1 [...] PEN TO INJECT MEDICATION DIRECTED Taking Pen [place] 3/16 31G X 5 MM Miscellaneous as directed Taking Omeprazole 20 MG Capsule Delayed Release TAKE 1 CAPSULE BY MOUTH EVERY DAY 30 MINUTES BEFORE BREAKFAST Taking Metoprolol Succinate ER 100 MG Tablet Extended Release 24 Hour TAKE 1 TABLET BY MOUTH EVERY DAY Taking Zetia 10 MG Tablet 1 tablet Orally Once a day Taking Lisinopril 5 MG Tablet TAKE 1 TABLET BY MOUTH EVERY DAY Taking amLODIPine Besylate 5 MG Tablet TAKE 1 TABLET BY MOUTH EVERY DAY Taking sAXagliptin HCl 5 MG Tablet TAKE 1 TABLET BY MOUTH EVERY DAY Once a day Taking Nystatin 987344 UNIT/GM Cream APPLY TOPICALLY TO THE AFFECTED AREA TWICE DAILY Taking Lantus SoloStar 100 UNIT/ML Solution Pen-injector 25 units Taking Jardiance 25 MG Tablet TAKE 1 TABLET BY MOUTH EVERY DAY Taking Atorvastatin Calcium 40 MG Tablet TAKE 1 TABLET BY MOUTH EVERY DAY Not-Taking/PRNDexcom G6 Sensor - Miscellaneous as directed change every 10 days Dexcom G6 Transmitter - Miscellaneous as directed change every 90 days Dexcom G6 Patternmaker All Around - Device as directed Pantoprazole Sodium 40 [...] change every 90 days Not-Taking/PRN Dexcom G6 Patternmaker All Around - Device as directed Not-Taking/PRN Pantoprazole Sodium [...] HCl: zoe riggins[Allergies Verified] Objective: * Vitals:?Ht: 68. weight is? 216? at home? BP? not taken today no temp. * Examination: ???General Examination: ?GENERAL APPEARANCE:?alert, well hydrated, in no distress.? Assessment: * Assessment: 1.?Bronchitis - J40 (Primary )??? Plan: * Treatment: * Procedure Codes:? * * Sign off status: Completed true * Provider:?Mj Bella MD Date:?0 12/08/2024 Generated for Lolis carlson/Ileana/eTransmitting on:?01/04/2025 12:07 PM EDT History and Physical Notes * HPI (History of Present Illness) Category Sub-Category Detail Notes Category Not es Symptom(s) Telehealth [facility] [address], [address] Location of patient:: at address listed in demographics for today's visit Patient identification confirmed using:: Name, Telehealth method:: Video co nference where patient is visible to the provider of care Consent:: Patient verbally c onsented to treatment, Patient verbally consented to billing insurance company, Patient informed of any privacy concerns related to method of visit Total time spend talking with patient (m inutes): 18 Examination Category Sub-Category Detail Notes Category Not es General Examination GENERAL APPEARANCE: alert, w ell hydrated, in no distress
[2025-01-04 12:25] LABS: Creatinine Urine 68.26 mg/dL; Microalbum/Creatinine Ratio Ur 127.4 ug/mg cr (<30)
[2025-01-04 12:26] LABS: PSA,Total (Free>4and<10) 2.35 ng/mL (0.00-4.00)
[2025-01-04 12:52] LABS: Alanine Aminotransferase 14 U/L (0-40); Alkaline Phosphatase 106 U/L (39-117); Anion Gap 13 (12-20); Aspartate Amino Transferase 30 U/L (5-37); Bilirubin Total 0.7 mg/dL (0.0-1.0); Blood Urea Nitrogen 17 mg/dL (9-16); Carbon Dioxide 26 mmol/L (22-29); Chloride 108 mmol/L (96-108); Cholesterol 148 mg/dL (<200); Estimated Glomerular Filt Rate > 60; Glucose Fasting 121 mg/dL (60-99); HDL Cholesterol 39 mg/dL (>40); LDL Cholesterol Calculated 59 mg/dL (<100); Sodium 143 mmol/L (135-145); Total Protein 7.1 g/dL (6.5-8.0); Triglycerides 250 mg/dL (<150)
== END 2025-01-04 11:31 | disposition home or self-care (01) ==
LOC: HO.LNP 11:30
PROVIDERS: Visit Provider Internal Medicine
DX: Z00.00 Encounter for general adult medical examination without abnormal findings (principal); E78.2 Mixed hyperlipidemia; E11.9 Type 2 diabetes mellitus without complications; I10 Essential (primary) hypertension; Z12.5 Encounter for screening for malignant neoplasm of prostate
CPT/HCPCS: 80053; 80061; 81001; 82043; 82570; 83036; 84153; 85025; 87086

== ENCOUNTER 2025-01-30 12:27 | Outpatient (REF) | payer OTHER, SELFPAY ==
[2025-01-30 13:25] LABS: Blood Urea Nitrogen 18 mg/dL (9-16); Estimated Glomerular Filt Rate > 60
--- OUTSIDE RECORDS SUMMARY | 2025-01-30 14:06 | XMS_ITS ---
Author Organization Mj Bella MD Address [address] [place] [phone] Care Team Providers Care Match Maker Name Role Phone Jena Mj Primary Care Provider REASON FOR VISIT ER visit rec'd Encounters Encounter Location Date Provider Diagnosis Mj Bella MD [address] [place] [address] [address] [place] [phone] 01/29/2025 Mj Bella Plan Of Treatment Next Appt Details Provider Name:Mj Maharaj ier, 02/06/2025 11:00:00 AM, [address] [place] [address], [address], [phone], Provider Name:Mj vasquez, 04/13/2025 09:15:00 AM, [address] [place] [address], [address], [phone], Provider Name:Mj vasquez, 07/02/2025 07:00:00 AM, [address], [address], [place], [place], [phone], Provider Name:Mj Maharaj ier, 07/09/2025 08:30:00 AM, [address], [address], [place], [place], [phone], Provider Name:Mj Maharaj ier, 01/08/2026 07:00:00 AM, [address], [address], [place], [place], [phone], Provider Name:Mj Maharaj ier, 01/14/2026 10:30:00 AM, [address] [place] [address], [address], [place], [place], [phone], Progress Notes * Rodolfo WRIGHT PDOB:1950 (74 yo M)Acc No.[id number]:01/29/2025 Patient:?Rodolfo WRIGHT :1950???Age:74 Y???Sex:Male Address: [address], [place] [address] * true * Date:? Generated for Lolis carlson/Ileana/eTransmitting on:?01/30/2025 02:05 PM EDT
== END 2025-01-30 12:28 | disposition home or self-care (01) ==
LOC: HO.10HDL 12:27
PROVIDERS: Visit Provider Internal Medicine
DX: Z01.812 Encounter for preprocedural laboratory examination (principal)
CPT/HCPCS: 36415; 82565; 84520

== ENCOUNTER 2025-01-30 13:59 | Outpatient (REF) | payer OTHER, SELFPAY ==
--- NOTE | ~2025-01-30 | CT_ITS ---
EXAMINATION: CT ABDOMEN AND PELVIS WITH CONTRAST CLINICAL INFORMATION: Flank pain. COMPARISON: None available. TECHNIQUE: Multidetector volumetric images were obtained from the superior aspect of the liver through the pubic symphysis following administration 85 mL of Omnipaque 350 intravenous contrast. Sagittal and coronal reformatted images were obtained on the technologist's workstation. Oral contrast: No This CT examination was performed using dose optimization techniques as appropriate, variously including the following: *Automated exposure control *Adjustment of mA and/or kV according to patient size (this includes techniques or standardized protocols for targeted exams where dose is matched to indication/reason for exam; i.e. extremities or head) *Use of iterative reconstruction technique FINDINGS: LUNG BASES: The lung bases are clear bilaterally. There has been prior median sternotomy. The heart size is normal. There are coronary calcifications. There are no effusions. There is a small type I hiatus hernia. LIVER, GALLBLADDER, AND BILIARY TREE: The liver is normal in size, shape, and attenuation. No focal hepatic lesion or biliary ductal dilatation is present. The gallbladder is unremarkable with no evidence of radiopaque gallstones, gallbladder wall thickening, or obvious pericholecystic inflammatory changes. PANCREAS: Unremarkable. SPLEEN: Unremarkable. ADRENAL GLANDS: Unremarkable. KIDNEYS AND URETERS: The kidneys are normal in size, shape, and attenuation. No hydronephrosis, hydroureter, or calculi seen. No perinephric stranding. There is a 1.2 cm cyst in the midpole right kidney. BLADDER: Unremarkable. GASTROINTESTINAL TRACT: Normal appendix. Moderate diverticulosis of the sigmoid and to lesser degree the descending colon. No inflammation or wall thickening. No rectal abnormality. The stomach demonstrates a small type I hiatus hernia. The duodenum and small bowel are normal in appearance. No inflammation or wall thickening. ABDOMINAL WALL: There are small fat-containing inguinal hernia. There is a tiny fat-containing umbilical hernia. LYMPH NODES: Normal. VASCULAR: Mild to moderate atheromatous calcification of the aorta and iliac arteries, without aneurysm. PELVIC VISCERA: Mild to moderate prostate enlargement, diameter of 5.5 cm. OSSEOUS STRUCTURES: No suspicious lytic or blastic bone lesion. Mild degenerative spinal changes, and mild degenerative hip joint changes. CT/CT abdomen pelvis w IV con IMPRESSION: 1. No acute findings in the abdomen or pelvis. 2. Ancillary findings as discussed in the body of the report. Evaristoner guidelines were followed. Electronically signed by: Samuel Trujillo MD 01/30/2025 02:49 PM EDT RP
[2025-01-30] MEDS: iohexoL 350 MG/ML 100 ML INFUS..BTL 85 ML IV (14:29)
== END 2025-01-30 14:00 | disposition home or self-care (01) ==
LOC: HO.CT 13:59
PROVIDERS: PCP Internal Medicine; Visit Provider Internal Medicine
DX: R10.9 Unspecified abdominal pain (principal)
CPT/HCPCS: 74177; Q9967

== ENCOUNTER → 2025-01-30 14:01 | Outpatient (BNV) | payer OTHER, SELFPAY | PROVIDERS: PCP Internal Medicine; Visit Provider Radiology Diagnostic Radiology | DX: K57.30 Diverticulosis of large intestine without perforation or abscess without bleeding (principal) | CPT/HCPCS: 74177 ==

== ENCOUNTER 2025-07-02 07:00 | Outpatient (REF) | payer OTHER, SELFPAY ==
[2025-07-02 11:28] LABS: Alanine Aminotransferase 27 U/L (0-40); Albumin Level 4.0 g/dL (3.5-5.0); Alkaline Phosphatase 114 U/L (39-117); Aspartate Amino Transferase 38 U/L (5-37); Cholesterol 155 mg/dL (<200); HDL Cholesterol 37 mg/dL (>40); Total Protein 7.2 g/dL (6.5-8.0); Triglycerides 259 mg/dL (<150)
[2025-07-02 11:53] LABS: Reflex LDLD? No
== END 2025-07-02 07:01 | disposition home or self-care (01) ==
LOC: HO.LNP 07:00
PROVIDERS: Visit Provider Internal Medicine
DX: E11.9 Type 2 diabetes mellitus without complications (principal); E78.00 Pure hypercholesterolemia, unspecified
CPT/HCPCS: 80061; 80076; 82947; 83036